=== PATIENT | female | born 1960 | race Caucasian/White ===

== ENCOUNTER 2016-07-15 11:24 | Inpatient (IN) | payer OTHER ==
--- NOTE | ~2016-07-15 | CO ---
Unit #: [id number] #: [id number] Patient: DEBBI GOLDMAN [id number] [facility] [address] [place], [place] [address] [id number] I MR#: [id number] NAME: DEBBI GOLDMAN ROOM: 579 Age: 56 Sex: F Admission Date: 07/15/2016 : 1960 Attending Physician: Sriram Hermosillo M.D. Primary Care Physician: Primary Care Physician No Consultation Date: 07/19/2016 CONSULTATION REPORT DISCUSSION Ms. Jenise Sena "Debbi Goldman" is a 56-year-old female, seen in room 579, bed 1 at [facility] on 07/19/2016. The patient was compliant, cooperative, able to make good eye contact. The patient reports that she is not feeling suicidal and able to contract for safety. The patient was admitted with suicide attempt, compliant, cooperative, has a sitter, sleeping good, tolerating medication fairly well, cooperative on the unit. REVIEW OF SYSTEMS Complete review of systems unremarkable. MENTAL STATUS EXAMINATION General appearance, the patient dressed casually. Attention span and concentration, fair. Speech, regular rate and coherent. Oriented in time, place, and person. Mood and affect, labile. Thought process, coherent and goal directed. Thought content, the patient denied any thoughts of harming self or others or any psychotic symptom. Recent and remote memory, fair. Language, able to name object and repeat phrases. Fund of knowledge, aware of current event and passive vocabulary intact. Mood and affect, sad and dysphoric. Insight and judgment, fair to poor. DIAGNOSIS Major depressive disorder, recurrent, severe, F33.2. ASSESSMENT/PLAN 1. Supportive psychotherapy and psychoeducation provided to the patient. 2. Educated about benefits and side effects of medication and course and prognosis of illness. 3. Advised to continue with current treatment and the patient can be discharged home once the patient is medically stable and follow up in outpatient program at [facility]. Advised to discontinue sitter at this time. Dictated by... Micaela Burleson/juan manuel TD: 07/21/2016 04:27 JOB #: [id number] Unit #: [id number] #: [id number] Patient: DEBBI GOLDMAN CONSULTATION REPORT Page 1 of 1 X Pepe Son MD CONSULTATION REPORT
--- NOTE | ~2016-07-15 | CR72 ---
[facility] A Service of [facility] & [facility] RADIOLOGY TEXT RESULTS PATIENT: SNEHA CHADWICK LOCATION: [facility] 579-01 : 60 UNIT #: [id number] AGE: [address]: Sriram Hermosillo MD SEX: F ORDER DR: [id number] [facility] [address] [place], [place] [address] [id number] I MR#: [id number] Acc #: [id number] NAME: CHELSI SWANSON : 1960 SEX: F STUDY DATE/TIME: 07/16/2016 5:27 UNIT: [facility] ROOM: [facility] STUDY DESCRIPTION: CR Chest Single View Portable Attending Physician: Eliud Noble M.D. Ordering Physician: Eliud Noble M.D. Primary Care Physician: Primary Care Physician No MEDICAL IMAGING REPORT This report is preliminary unless electronic signature is present EXAM Portable chest INDICATIONS Hypotension today. PROCEDURE Frontal view chest. COMPARISON 07/15/2016 FINDINGS Heart size stable. Left basilar atelectasis. No pneumothorax. ET tube not significantly changed. IMPRESSION Slightly increased left basilar atelectasis. Otherwise stable. Dictated by... Wang Page M.D. THIS IS AN ELECTRONICALLY VERIFIED REPORT Wang Page M.D. at 07/20/2016 7:30 AM JAYNE/clement TD: 07/16/2016 07:20 JOB #: [id number] MEDICAL IMAGING REPORT Page 1 of 1 COPY
--- NOTE | ~2016-07-15 | HP ---
Unit #: [id number] #: [id number] Patient: SNEHA CHADWICK [id number] [address] [place], [place] [address] [id number] I MR#: [id number] NAME: CHELSI SWANSON ROOM: 81171 Age: Sex: F Admission Date: 07/15/2016 : 04/12/1959 Attending Physician: Eliud Noble M.D. HISTORY AND PHYSICAL CHIEF COMPLAINT Drug overdose. HISTORY OF PRESENT ILLNESS This is a 57 year old who was reported allegedly overdosed about 5 a.m. this morning on Metoprolol, lisinopril and Hydrochlorothiazide. She was brought to the emergency room via EMS. By the time she arrived in the emergency room, she was already hypotensive. She did receive glucagon bolus. As well, she is currently on a glucagon drip. Poison Control Center was contacted by ER physician, Dr. Harvey. The patient is unable to provide a history at this point, and no family member was available at this time. REVIEW OF SYSTEMS Unobtainable. The patient is currently intubated on the ventilator. She was given activated charcoal, as well, on presentation to the emergency room. PAST MEDICAL HISTORY Significant for hypertension. Other past medical history is unknown. HOME MEDICATIONS Include metoprolol, lisinopril and Hydrochlorothiazide. ALLERGIES No known drug allergies. SOCIAL HISTORY Unobtainable at this time. FAMILY HISTORY Unobtainable at this time. PHYSICAL EXAMINATION GENERAL: The patient is currently on the ventilator, currently on pressors with dopamine. VITAL SIGNS: Blood pressure 105/58, pulse 84, respiratory rate 19, temperature 99.4. CHEST: Reduced breath sounds in lung bases (1) . ABDOMEN: Full, moves with respirations. Soft. EXTREMITIES: No edema. SKIN: Warm and dry with no rashes. LYMPHATIC SYSTEM: No peripheral lymphadenopathy that I could appreciate. Unit #: [id number] #: [id number] Patient: SNEHA CHADWICK DIAGNOSTIC DATA LABORATORY: She had a blood gas early this morning at 7:47 with a pH of 7.37, pCO2 of 47.5, FIO2 100%, bicarb 27.9. Chemistry - Glucose of 273, BUN 8, creatinine 1.1, sodium 139, potassium 4, creatinine 1.1, AST 124, ALT 172, alkaline phosphatase 102. She had a CBC - WBC of 8.4, hemoglobin 13.4, hematocrit 39.6, platelet count 154, neutrophil count 73.9. She had a urinalysis, which showed specific gravity of 1.018, pH of 5.5, leukocyte esterase trace, nitrite positive. ASSESSMENT AND PLAN 1. Drug overdose. She is currently intubated on the ventilator. She is on glucagon for beta-nasir overdose. She is currently on pressor support. 2. Hypertension. She is currently hypotensive at this time. 3. UTI. Will give her IV Rocephin 1 gram x1 now and 1 gram daily, and we will culture her urine. 4. Will consult ore crusher for vent management. 5. DVT prophylaxis - Lovenox, as well as SCDs. 6. GI prophylaxis - Protonix 40 mg IV daily. NOTE: Critical care time spent is about 37 minutes. Dictated by Micaela Avitia/javon TD: 07/15/2016 10:35 JOB #: [id number] HISTORY AND PHYSICAL Page 1 of 1 X Eliud Noble MD HISTORY AND PHYSICAL
--- NOTE | ~2016-07-15 | CR72 ---
[facility] A Service of [facility] & [facility] RADIOLOGY TEXT RESULTS PATIENT: SNEHA CHADWICK LOCATION: [facility] 579-01 : 60 UNIT #: [id number] AGE: [address]: Sriram Hermosillo MD SEX: F ORDER DR: [id number] [facility] [address] [place], [place] [address] [id number] I MR#: [id number] Acc #: [id number] NAME: SNEHA CHADWICK : 1960 SEX: F STUDY DATE/TIME: 07/17/2016 4:34 [facility]IT: [facility] ROOM: [facility] STUDY DESCRIPTION: CR Chest Single View Portable Attending Physician: Eliud Noble M.D. Ordering Physician: Cathy Spencer M.D. Primary Care Physician: Primary Care Physician No MEDICAL IMAGING REPORT This report is preliminary unless electronic signature is present EXAM Portable chest INDICATIONS Respiratory failure. PROCEDURE Frontal view chest. COMPARISON 07/16/2016 FINDINGS Heart size within normal limits. No dense consolidation, pleural fluid or pneumothorax. IMPRESSION No dense consolidation. The ET tube and NG tube have been removed. Dictated by... Wang Page M.D. THIS IS AN ELECTRONICALLY VERIFIED REPORT Wang Page M.D. at 07/20/2016 7:29 AM Joseline TD: 07/17/2016 07:58 JOB #: [id number] MEDICAL IMAGING REPORT Page 1 of 1 COPY
--- NOTE | ~2016-07-15 | CO ---
Unit #: [id number] #: [id number] Patient: SNEHA CHADWICK [id number] [facility]. [place], [place] [address] [id number] I MR#: [id number] NAME: CHELSI SWANSON ROOM: [facility] Age: 56 Sex: F Admission Date: 07/15/2016 : 1960 Attending Physician: Eliud Noble M.D. Consultation Date: 07/15/2016 CONSULTATION REPORT REASON FOR CONSULTATION Critical care management and respiratory failure. CHIEF COMPLAINT Drug overdose. HISTORY OF PRESENT ILLNESS A 57-year-old female with a past medical history of hypertension presented with overdose of metoprolol, lisinopril and hydrochlorothiazide. She was brought to the emergency room and was given activated charcoal. She did receive a glucagon bolus and is currently on a glucagon drip. I am seeing the patient at the bedside. She is currently intubated and sedated. REVIEW OF SYSTEMS Unobtainable as patient is on a ventilator. PAST MEDICAL HISTORY Hypertension. HOME MEDICATIONS 1. Metoprolol. 2. Lisinopril and hydrochlorothiazide. ALLERGIES No known drug allergies. SOCIAL HISTORY Unobtainable. PHYSICAL EXAMINATION VITAL SIGNS: Temperature 98, pulse 87, respirations 12, and blood pressure 110/70. NEUROLOGICAL: Sedated, intubated. CARDIOVASCULAR: S1 plus S2. RESPIRATORY: Bilateral air entry, bilateral mild rhonchi. GASTROINTESTINAL: Nontender and soft. Bowel sounds positive. EXTREMITIES: No edema. SKIN: No rashes and no ulcers. LYMPHATICS: No lymphadenopathy. DIAGNOSTIC STUDIES LABORATORY: Blood gas with pH of 7.4, PCO2 of 42, and PO2 of 88. Creatinine 1.1, sodium 139, and potassium 4. Liver enzymes are reviewed. Unit #: [id number] #: [id number] Patient: SNEHA CHADWICK ADDENDUM JOB [id number] ASSESSMENT 1. Acute respiratory failure. 2. Drug overdose. 3. Urinary tract infection. 4. Possible suicide attempt. PLAN At this point, the plan is to continue ventilator support, IV antibiotics, and bronchodilator. Noncontrast CT of the chest. GI and DVT prophylaxis. Continue IV fluids and monitor renal function. Troponin and 2D echo will be ordered. Patient will be closely monitored. She will be continued on glucagon drip. Please see orders for detailed plans. Thank you very much for this consultation. Dictated by... Micaela Tsang TD: 07/15/2016 22:13 JOB #: [id number] CONSULTATION REPORT Page 1 of 1 X Cathy Spencer MD X CONSULTATION REPORT
--- NOTE | ~2016-07-15 | CO ---
Unit #: [id number] #: [id number] Patient: DEBBI GOLDMAN [id number] [facility] [address] [place], [place] [address] [id number] I MR#: [id number] NAME: DEBBI GOLDMAN ROOM: 579 Age: 56 Sex: F Admission Date: 07/15/2016 : 1960 Attending Physician: Sriram Hermosillo M.D. Primary Care Physician: Primary Care Physician No Consultation Date: 07/20/2016 CONSULTATION REPORT REASON FOR CONSULTATION Followup. DISCUSSION Ms. Debbi Goldman (Jenise Sena) is a 56-year-old female, seen in room 579 at [facility] on 07/20/2016. The patient was compliant and cooperative. Reports of feeling better. Denied any suicidal or homicidal ideation. Denied any psychotic symptom. Sleeping good. Tolerating medication fairly well. REVIEW OF SYSTEMS Complete review of systems unremarkable. MENTAL STATUS EXAMINATION General appearance, the patient lying comfortably in bed. Attention span and concentration, fair. Speech, regular rate and coherent. Oriented in time, place, and person. Mood and affect were labile. Thought process, goal directed. Thought content, the patient denied any thoughts of harming self or others or any psychotic symptom. Recent and remote memory, fair. Language, able to name object and repeat phrases. Fund of knowledge, fair. Insight and judgment, fair to slightly impaired. DIAGNOSIS Major depressive disorder, recurrent, severe, F33.2. ASSESSMENT/PLAN 1. Supportive psychotherapy and psychoeducation provided to the patient. 2. Educated about benefits and side effects of medication and course and prognosis of illness. 3. Advised to continue with current treatment and follow up on the outpatient basis at [facility] telephone #[phone]. Dictated by... Micaela Burleson/juan manuel TD: 07/21/2016 03:23 JOB #: [id number] Unit #: [id number] #: [id number] Patient: DEBBI GOLDMAN CONSULTATION REPORT Page 1 of 1 X Pepe Son MD CONSULTATION REPORT
--- NOTE | ~2016-07-15 | EKG ---
PATIENT: CHELSI SWANSON UNIT #: [id number] Ventricular Rate: 79 BPM Atrial Rate: 79 BPM P-R Interval: 136 ms QRS Duration: 86 ms Q-T Interval: 432 ms QTC Calculation(Bezet): 495 ms P Ozan: 60 degrees Calculated R Ozan: 78 degrees Calculated T Ozan: 66 degrees Diagnosis Line: Normal sinus rhythm Diagnosis Line: Cannot rule out Septal infarct , age undetermined Diagnosis Line: Borderline ECG Diagnosis Line: No previous ECGs available Diagnosis Line: Confirmed by BERNICE CASTRO MD ([id number]) on 07/15/2016 Diagnosis Line: 10:36:20 PM INTERPRETING MD: GLORIA GALO
--- NOTE | ~2016-07-15 | CR72 ---
[facility] A Service of [facility] & [facility] RADIOLOGY TEXT RESULTS PATIENT: SNEHA CHADWICK LOCATION: [facility] 579-01 : 60 UNIT #: [id number] AGE: [address]: Sriram Hermosillo MD SEX: F ORDER DR: [id number] [facility] [address] [place], [place] [address] [id number] P MR#: [id number] Acc #: [id number] NAME: CHELSI SWANSON : 04/12/1959 SEX: F STUDY DATE/TIME: 07/15/2016 6:23 UNIT: JW ROOM: STUDY DESCRIPTION: CR Chest Single View Portable Attending Physician: Jeff Harvey M.D. Ordering Physician: Rocky Lyons M.D. MEDICAL IMAGING REPORT This report is preliminary unless electronic signature is present EXAM Portable chest 07/15 INDICATIONS Endotracheal tube placement. Overdose today. FINDINGS AP portable chest was obtained. No comparison. Cardiac and mediastinal contours are normal. The lungs are clear. There is no pneumothorax. ET tube mid trachea. NG tube tip is in the proximal stomach with the side port in the distal esophagus. Recommend advancing the NG tube. Dictated by... Kumar Sharma Jr., M.D. THIS IS AN ELECTRONICALLY VERIFIED REPORT Kumar Sharma Jr., M.D. at 07/15/2016 3:53 PM JENNA/brooklyn TD: 07/15/2016 07:34 JOB #: [id number] MEDICAL IMAGING REPORT Page 1 of 1 COPY
--- NOTE | ~2016-07-15 | CR6 ---
[facility] A Service of [facility] RADIOLOGY TEXT RESULTS PATIENT: SNEHA CHADWICK LOCATION: [facility] 579-01 : 60 UNIT #: [id number] AGE: [address]: Sriram Hermosillo MD SEX: F ORDER DR: [id number] [facility] [address] [place], [place] [address] [id number] P MR#: [id number] Acc #: [id number] NAME: CHELSI SWANSON : 04/12/1959 SEX: F STUDY DATE/TIME: 07/15/2016 7:20 UNIT: [facility] ROOM: STUDY DESCRIPTION: CR Abdomen Portable Sng View Attending Physician: Jeff Harvey M.D. Ordering Physician: Jeff Harvey M.D. MEDICAL IMAGING REPORT This report is preliminary unless electronic signature is present EXAM Supine radiograph of the abdomen 07/15/2016 HISTORY Nasogastric tube placement. Supine radiograph of the abdomen is presented. COMPARISON 07/15/2016 06:25 hours. FINDINGS Enteric tube extends approximately 46 cm below the level of the diaphragm. It loops in the distal stomach and proceeds in a retrograde fashion such that the tip terminates pointed upward and to the left in the region of the lower gastric fundus. Bowel gas pattern shows air-filled but nondilated transverse colon. Relative paucity of air seen in small bowel. No free air. Solid organ contours unremarkable. Ill-defined patchy densities bilateral lung bases are indeterminate in appearance. Please see today's chest radiograph for further evaluation. No dense airspace disease is seen and there is no pleural effusions seen. Mild degenerative changes in spine. Atherosclerotic arterial calcifications noted. Dictated by... Luis Jama M.D. THIS IS AN ELECTRONICALLY VERIFIED REPORT Luis Jama M.D. at 07/16/2016 5:36 PM GORDON/clement [facility] A Service of [facility] RADIOLOGY TEXT RESULTS PATIENT: SNEHA CHADWICK LOCATION: [facility] 579-01 : 60 UNIT #: [id number] AGE: [address]: Sriram Hermosillo MD SEX: F ORDER DR: TD: 07/15/2016 07:53 JOB #: [id number] MEDICAL IMAGING REPORT Page 1 of 1 COPY
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
--- NOTE | ~2016-07-15 | CR7 ---
[facility] A Service of [facility] RADIOLOGY TEXT RESULTS PATIENT: SNEHA CHADWICK LOCATION: [facility] 579-01 : 60 UNIT #: [id number] AGE: [address]: Sriram Hermosillo MD SEX: F ORDER DR: [id number] [facility] [address] [place], [place] [address] [id number] P MR#: [id number] Acc #: [id number] NAME: CHELSI SWANSON : 04/12/1959 SEX: F STUDY DATE/TIME: 07/15/2016 6:25 UNIT: JW ROOM: STUDY DESCRIPTION: CR Abdomen Single AP View Attending Physician: Jeff Harvey M.D. Ordering Physician: Rocky Lyons M.D. MEDICAL IMAGING REPORT This report is preliminary unless electronic signature is present EXAM KUB 07/15 INDICATIONS NG tube placement today. Overdose today. FINDINGS Supine view of the abdomen was obtained. The tip of an NG tube is present in the proximal stomach with the side port in the distal esophagus. Recommend advancing the NG tube at least 10 cm. Visualized bowel gas pattern is normal. Dictated by... Kumar Sharma Jr., M.D. THIS IS AN ELECTRONICALLY VERIFIED REPORT Kumar Sharma Jr., M.D. at 07/15/2016 3:53 PM JENNA/clement TD: 07/15/2016 07:36 JOB #: [id number] MEDICAL IMAGING REPORT Page 1 of 1 COPY
--- NOTE | ~2016-07-15 | DS ---
Unit #: [id number] #: [id number] Patient: SNEHA CHADWICK [id number] [facility]. [place], [place] [address] [id number] I MR#: [id number] NAME: SNEHA CHADWICK ROOM: 579 Age: 56 Sex: F Admission Date: 07/15/2016 : 1960 Discharge Date: 07/20/2016 Attending Physician: Sriram Hermosillo M.D. Primary Care Physician: No Primary Care Physician DISCHARGE SUMMARY CONSULTANTS 1. Dr. Spencer/Dr. Alma Kc. 2. Dr. Son. ADMITTING DIAGNOSES 1. Drug overdose suicide attempt. 2. Acute respiratory failure. DISCHARGE DIAGNOSES 1. Drug overdose suicide attempt. 2. Acute respiratory failure. 3. Urinary tract infection. HISTORY OF PRESENT ILLNESS The patient is a 56-year-old lady with past medical history of hypertension, who lives at her home, was brought to the emergency room on the mainly because of her drug overdosage in attempt to kill herself. She mentions she took lisinopril, metoprolol, and hydrochlorothiazide as she was not feeling happy with her life. At the time when she presented to the emergency room, she was intubated electively, started on glucagon drip and admitted to the ICU. Dr. Spencer managed the ICU. She was extubated in the hospital course. She was seen by Dr. Son. He suggested to follow with him as an outpatient. Patient currently denies any suicidal thoughts or ideas. She says she has enough social support. She has support from her mandaeism. She requests help with prescriptions and I am requesting manager of case management to see if her prescriptions can be covered. She is doing clinically better and will discharge her home. Will request her to follow with psychiatry as an outpatient. PHYSICAL EXAMINATION On the day of the discharge, her physical examination: VITAL SIGNS: Temperature 98.1, pulse rate 110, respiratory rate 18, blood pressure 170/79. GENERAL: The patient is alert and oriented x3, lying in the bed in no acute distress. HEENT: Normocephalic and atraumatic. No icterus. PERRLA. Extraocular muscles intact. NECK: Supple. No JVD. HEART: S1, S2. Regular rate and rhythm. CHEST: Bilateral equal air entry. Clear to auscultation. ABDOMEN: Obese, soft, nontender. EXTREMITIES: No edema. Normal pulses. DISCHARGE MEDICATIONS Unit #: [id number] #: [id number] Patient: SNEHA CHADWICK 1. Lisinopril/hydrochlorothiazide 10/12.5 mg one tablet p.o. daily. 2. Ventolin two puffs q.i.d. p.r.n. for shortness of breath. 3. Symbicort 160/4.5 mcg two puffs twice a day. 4. Tylenol p.r.n. 5. Neurontin 600 mg twice a day. 6. Effexor 75 mg twice a day. 7. Metoprolol 25 mg daily. 8. Lipitor 20 mg daily. 9. Omnicef 300 mg p.o. b.i.d. for three more days. DISCHARGE INSTRUCTIONS She will be discharged home and instructed to follow with her primary care as an outpatient. Will try to arrange for an appointment with outpatient clinic with the hospitalist team. Dictated by... Micaela Queen/wanda TD: 07/20/2016 16:03 JOB #: [id number] DISCHARGE SUMMARY Page 1 of 1 X X DISCHARGE SUMMARY
[2016-07-15 07:21] LABS: URINE SOURCE CLEAN CATCH
[2016-07-15 07:24] LABS: BASOPHIL# 0.1 X10e3 (0-0.3); BASOPHIL% 1.1 % (0-2.5); EOSINOPHIL# 0.1 X10e3 (0-0.7); EOSINOPHIL% 1.7 % (0.0-7.0); HEMATOCRIT 39.6 % (35.0-45.0); HEMOGLOBIN 13.4 gm/dL (12.0-16.0); LYMPHOCYTE# 1.4 X10e3 (1.0-3.5); LYMPHOCYTE% 16.6 % (17.0-45.0); MEAN CELL VOLUME 97.2 FL (83-96); MEAN CORPUSCULAR HEMOGLOBIN 32.9 PG (28-34); MEAN CORPUSCULAR HGB CONC 33.8 g/dL (30-36); MEAN PLATELET VOLUME 8.9 FL (6.5-11.5); MONOCYTE# 0.6 X10e3 (0-1.0); MONOCYTE% 6.7 % (3.0-12.0); NEUTROPHIL# 6.2 X10e3 (1.5-7.1); NEUTROPHIL% 73.9 % (40-75); PLATELET COUNT 134 X10e3 (140-420); RED BLOOD COUNT 4.07 X10e (3.90-5.30); RED CELL DISTRIBUTION WIDTH 13.4 % (11.0-15.5); WHITE BLOOD COUNT 8.4 X10e3 (4.0-10.5)
[2016-07-15 07:30] LABS: DIFF IND NO
[2016-07-15 07:35] LABS: URINE APPEARANCE CLEAR; URINE BILIRUBIN NEG (NEG); URINE BLOOD NEG (NEG); URINE COLOR YELLOW; URINE GLUCOSE NEG (NEG); URINE KETONE NEG (NEG); URINE LEUKOCYTE ESTERASE TRACE (NEG); URINE NITRATE POS (NEG); URINE PH 5.5 (5-8); URINE PROTEIN NEG (NEG); URINE SPECIFIC GRAVITY 1.018 (1.003-1.035)
[2016-07-15 07:38] LABS: CULTURE INDICATED? YES; URBCS1 AUWI 0-2 /[HPF] (0-2); URINE SQUAMOUS EPITHELIAL CELL FEW /[HPF]
[2016-07-15 07:54] LABS: PARTIAL THROMBOPLASTIN TIME 22.8 SECONDS (23.5-31.3)
[2016-07-15 07:55] LABS: URINE BACTERIA AUWI 2+ (NEGATIVE)
[2016-07-15 07:55] LABS: ARTERIAL BLD GAS O2 SATURATION 98.2 % (90.0-100.0); ARTERIAL BLOOD GAS HCO3 27.9 mmol/L; ARTERIAL BLOOD GAS MET HB 0.8 %sat (0.0-2.0); ARTERIAL BLOOD GAS PCO2 47.5 mmHg (35.0-45.0); ARTERIAL BLOOD GAS pH 7.377 (7.350-7.450)
[2016-07-15 07:56] LABS: ARTERIAL BLOOD GAS ART SITE RIGHT BRACHIAL; ARTERIAL BLOOD GAS DELIVERY VENT; ARTERIAL BLOOD GAS VENT MODE AC; ARTERIAL DRAW? YES
[2016-07-15 07:58] LABS: ACETAMINOPHEN <10 ug/mL; ALBUMIN SERUM 3.3 g/dL (3.5-5.0); ALCOHOL BLOOD <5 mg/dL (0); ALKALINE PHOSPHATASE 102 U/L (32-92); ALT (SGPT) 172 U/L (10-40); AST (SGOT) 124 U/L (10-42); BILIRUBIN, DIRECT 0.2 mg/dL (0.0-0.2); BILIRUBIN,INDIRECT 0.5 mg/dL (0.0-0.9); BILIRUBIN,TOTAL 0.7 mg/dL (0.2-2.0); BLOOD UREA NITROGEN 18 mg/dL (9-23); BUN/CREATININE RATIO 16.36; CALCIUM SERUM 8.6 mg/dL (8.4-10.2); CARBON DIOXIDE 29 mmol/L (22-31); CHLORIDE 103 mmol/L (100-111); CREATININE SERUM 1.1 mg/dL (0.6-1.4); GLOM FILT RATE Estimated 55.7 mL/min (>60); GLUCOSE FASTING 273 mg/dL (70-110); SALICYLATE <4.0 mg/dL; SODIUM 139 mmol/L (135-145)
[2016-07-15 08:14] LABS: AMPHETAMINE NEG (NEG); BARBITURATES NEG (NEG); BENZODIAZEPINES NEG (NEG); COCAINE NEG (NEG); MARIJUANA NEG (NEG); OPIATES NEG (NEG); TRICYCLIC ANTIDEPRESSANTS NEG (NEG); U METHADONE NEG (NEG)
[~2016-07-15 11:24] MED LIST: ADALAT CC PO; ADALATCC; ADVAIR 250-501 EAC1 IN; ADVAIR 5001 DISK W/D PO; ADVAIR INH; ALAVERT10 M1 PO; ALBUTEROL 0.5ML INH; ALBUTEROL17 GM; ALBUTEROL17 GM INH; ANTI-ITCH28 GM TOP; ASPIRIN PO; AUGMENTIN PO; BACTRIM DS TABL1 TA1 PO; BP PILL; COMBIVENT INH14.7 GM; COMBIVENT MININEB; COMBIVENT MININEB INH; COMBIVENT14.7 GM IN; DARVOCET-N 1001 TAB; DARVOCET-N 1001 TAB PO; FLEXERIL PO; FLOXIN OTIC5 M1 AD; IBUPROFEN; KEFLEX500 M1 PO; KLONOPIN; LEVAQUIN PO; LISINOPRIL; LISINOPRIL PO; LISINOPRIL-HCTZ1 T19 PO; LORTAB 10/500 T1 TAB PO; LORTAB 5/500 TA1 TA2 PO; MEDROL PO; METHADONE PO; NICOTINE T1 PATCH .2 TOP; PHENERGAN PO; PREDNISONE PO; PRILOSEC; PRILOSEC PO; PRILOSEC20 M1 PO; PROMETHAZINE D118 ML PO; PROZAC; PROZAC PO; PYRIDIUM PO; SEROQUEL PO; ZITHROMAX PO; ZOFRAN PO; [UNRECOGNIZED DRUG - OTHER]
[2016-07-15 11:57] LABS: SALICYLATE <4.0 mg/dL
[2016-07-15 12:00] LABS: ACETAMINOPHEN <10 ug/mL
[2016-07-15 14:24] LABS: ARTERIAL BLD GAS O2 SATURATION 95.7 % (90.0-100.0); ARTERIAL BLOOD GAS ART SITE LEFT RADIAL; ARTERIAL BLOOD GAS CARBOXY HB 0.6 %sat (0.0-9.0); ARTERIAL BLOOD GAS DELIVERY VENT; ARTERIAL BLOOD GAS HCO3 28.8 mmol/L; ARTERIAL BLOOD GAS MET HB 0.7 %sat (0.0-2.0); ARTERIAL BLOOD GAS PCO2 42.3 mmHg (35.0-45.0); ARTERIAL BLOOD GAS PO2 88.8 mmHg (80.0-100); ARTERIAL BLOOD GAS VENT MODE AC; ARTERIAL BLOOD GAS pH 7.441 (7.350-7.450); ARTERIAL DRAW? YES
[2016-07-15] MEDS ORDERED: METOPROLOL TART25 MG PO (17:49)
[2016-07-15] MEDS ORDERED: IBUPROFEN800 MG PO (17:50)
[2016-07-15] MEDS ORDERED: ALBUTEROL17 GM INH (17:50)
[2016-07-15] MEDS ORDERED: EFFEXOR75 M3 PO (17:55)
[2016-07-15] MEDS ORDERED: ZESTORETIC 10-1 EAC1 PO (17:55)
[2016-07-15] MEDS ORDERED: LIPITOR20 MG PO (17:55)
[2016-07-15] MEDS ORDERED: NEURONTIN600 MG PO (17:56)
[2016-07-15] MEDS ORDERED: SYMBICORT INH (17:57)
[2016-07-16 04:45] LABS: ARTERIAL BLD GAS O2 SATURATION 97.8 % (90.0-100.0); ARTERIAL BLOOD GAS CARBOXY HB 0.9 %sat (0.0-9.0); ARTERIAL BLOOD GAS HCO3 28.6 mmol/L; ARTERIAL BLOOD GAS MET HB 0.9 %sat (0.0-2.0); ARTERIAL BLOOD GAS pH 7.392 (7.350-7.450)
[2016-07-16 04:57] LABS: ARTERIAL BLOOD GAS ALLEN TEST NORMAL; ARTERIAL BLOOD GAS ART SITE LEFT RADIAL; ARTERIAL BLOOD GAS DELIVERY VENT; ARTERIAL BLOOD GAS VENT MODE AC; ARTERIAL DRAW? YES
[2016-07-16 05:19] LABS: BASOPHIL# 0.1 X10e3 (0-0.3); BASOPHIL% 0.8 % (0-2.5); EOSINOPHIL# 0.2 X10e3 (0-0.7); EOSINOPHIL% 1.5 % (0.0-7.0); HEMATOCRIT 44.6 % (35.0-45.0); HEMOGLOBIN 14.8 gm/dL (12.0-16.0); LYMPHOCYTE# 3.3 X10e3 (1.0-3.5); MEAN CELL VOLUME 96.1 FL (83-96); MEAN CORPUSCULAR HEMOGLOBIN 31.8 PG (28-34); MEAN CORPUSCULAR HGB CONC 33.1 g/dL (30-36); MEAN PLATELET VOLUME 8.9 FL (6.5-11.5); MONOCYTE# 1.3 X10e3 (0-1.0); MONOCYTE% 8.4 % (3.0-12.0); NEUTROPHIL# 10.7 X10e3 (1.5-7.1); NEUTROPHIL% 68.3 % (40-75); PLATELET COUNT 131 X10e3 (140-420); RED BLOOD COUNT 4.64 X10e (3.90-5.30); RED CELL DISTRIBUTION WIDTH 13.6 % (11.0-15.5)
[2016-07-16 05:22] LABS: WHITE BLOOD COUNT 15.7 X10e3 (4.0-10.5)
[2016-07-16 05:23] LABS: DIFF IND YES
[2016-07-16 06:02] LABS: ALBUMIN SERUM 3.2 g/dL (3.5-5.0); BILIRUBIN,TOTAL 1.2 mg/dL (0.2-2.0); BUN/CREATININE RATIO 22.85; CREATININE SERUM 0.7 mg/dL (0.6-1.4); GLOM FILT RATE Estimated 96.9 mL/min (>60); PROTEIN TOTAL SERUM 6.4 g/dL (6.0-8.3)
[2016-07-16 06:18] LABS: POTASSIUM 2.8 mmol/L (3.5-5.1)
[2016-07-16 06:27] LABS: PLATELET ESTIMATE DECREASED (NORMAL); RBC NORMAL YES
[2016-07-16 06:28] LABS: ANISOCYTOSIS SL
[2016-07-16 10:02] LABS: ARTERIAL BLD GAS O2 SATURATION 95.6 % (90.0-100.0); ARTERIAL BLOOD GAS ALLEN TEST NORMAL; ARTERIAL BLOOD GAS ART SITE LEFT BRACHIAL; ARTERIAL BLOOD GAS DELIVERY VENT; ARTERIAL BLOOD GAS HCO3 29.5 mmol/L; ARTERIAL BLOOD GAS PCO2 50.7 mmHg (35.0-45.0); ARTERIAL BLOOD GAS PO2 86.4 mmHg (80.0-100); ARTERIAL BLOOD GAS VENT MODE CPAP; ARTERIAL BLOOD GAS pH 7.374 (7.350-7.450); ARTERIAL DRAW? YES
[2016-07-17 04:38] LABS: BASOPHIL% 0.8 % (0-2.5); EOSINOPHIL# 0.1 X10e3 (0-0.7); EOSINOPHIL% 1.6 % (0.0-7.0); HEMATOCRIT 38.5 % (35.0-45.0); LYMPHOCYTE# 1.2 X10e3 (1.0-3.5); LYMPHOCYTE% 21.5 % (17.0-45.0); MEAN CELL VOLUME 95.6 FL (83-96); MEAN CORPUSCULAR HEMOGLOBIN 31.9 PG (28-34); MEAN CORPUSCULAR HGB CONC 33.4 g/dL (30-36); MEAN PLATELET VOLUME 8.5 FL (6.5-11.5); MONOCYTE# 0.5 X10e3 (0-1.0); MONOCYTE% 8.6 % (3.0-12.0); NEUTROPHIL# 3.8 X10e3 (1.5-7.1); NEUTROPHIL% 67.5 % (40-75); RED BLOOD COUNT 4.02 X10e (3.90-5.30); RED CELL DISTRIBUTION WIDTH 13.4 % (11.0-15.5)
[2016-07-17 04:51] LABS: HEMOGLOBIN 12.8 gm/dL (12.0-16.0); WHITE BLOOD COUNT 5.6 X10e3 (4.0-10.5)
[2016-07-17 04:52] LABS: DIFF IND YES; PLATELET COUNT 82 X10e3 (140-420)
[2016-07-17 04:57] LABS: BILIRUBIN,TOTAL 0.8 mg/dL (0.2-2.0); CALCIUM SERUM 8.3 mg/dL (8.4-10.2); CREATININE SERUM 0.6 mg/dL (0.6-1.4); GLOM FILT RATE Estimated 101.9 mL/min (>60); MAGNESIUM 1.3 mg/dL (1.6-3.0)
[2016-07-17 04:58] LABS: ANISOCYTOSIS SL; PLATELET ESTIMATE DECREASED (NORMAL)
[2016-07-17 05:09] LABS: ARTERIAL BLD GAS O2 SATURATION 95.9 % (90.0-100.0); ARTERIAL BLOOD GAS CARBOXY HB 1.3 %sat (0.0-9.0); ARTERIAL BLOOD GAS HCO3 30.1 mmol/L; ARTERIAL BLOOD GAS pH 7.398 (7.350-7.450)
[2016-07-17 05:31] LABS: ARTERIAL BLOOD GAS ALLEN TEST NORMAL; ARTERIAL BLOOD GAS ART SITE LEFT RADIAL; ARTERIAL BLOOD GAS DELIVERY NASAL CANNULA; ARTERIAL DRAW? YES
[2016-07-18 04:28] LABS: MAGNESIUM 1.5 mg/dL (1.6-3.0); POTASSIUM 3.6 mmol/L (3.5-5.1)
[2016-07-19 05:46] LABS: EOSINOPHIL% 2.1 % (0.0-7.0); LYMPHOCYTE# 0.6 X10e3 (1.0-3.5); MEAN CELL VOLUME 96.7 FL (83-96); MEAN CORPUSCULAR HEMOGLOBIN 32.2 PG (28-34); MEAN CORPUSCULAR HGB CONC 33.3 g/dL (30-36); MEAN PLATELET VOLUME 7.9 FL (6.5-11.5); MONOCYTE# 0.2 X10e3 (0-1.0); MONOCYTE% 9.3 % (3.0-12.0); NEUTROPHIL# 1.2 X10e3 (1.5-7.1); NEUTROPHIL% 57.6 % (40-75); PLATELET COUNT 72 X10e3 (140-420); RED BLOOD COUNT 3.72 X10e (3.90-5.30); RED CELL DISTRIBUTION WIDTH 13.6 % (11.0-15.5); WHITE BLOOD COUNT 2.1 X10e3 (4.0-10.5)
[2016-07-19 05:47] LABS: DIFF IND NO
[2016-07-19 07:46] LABS: CALCIUM SERUM 8.6 mg/dL (8.4-10.2); CREATININE SERUM 0.6 mg/dL (0.6-1.4); GLOM FILT RATE Estimated 101.9 mL/min (>60); MAGNESIUM 1.3 mg/dL (1.6-3.0); POTASSIUM 3.1 mmol/L (3.5-5.1)
[2016-07-20 07:38] LABS: BASOPHIL% 1.1 % (0-2.5); EOSINOPHIL# 0.1 X10e3 (0-0.7); EOSINOPHIL% 1.8 % (0.0-7.0); HEMATOCRIT 38.6 % (35.0-45.0); HEMOGLOBIN 12.7 gm/dL (12.0-16.0); LYMPHOCYTE# 0.6 X10e3 (1.0-3.5); LYMPHOCYTE% 20.3 % (17.0-45.0); MEAN CELL VOLUME 97.8 FL (83-96); MEAN CORPUSCULAR HEMOGLOBIN 32.2 PG (28-34); MEAN CORPUSCULAR HGB CONC 32.9 g/dL (30-36); MEAN PLATELET VOLUME 7.6 FL (6.5-11.5); MONOCYTE# 0.3 X10e3 (0-1.0); MONOCYTE% 9.5 % (3.0-12.0); NEUTROPHIL# 2.1 X10e3 (1.5-7.1); NEUTROPHIL% 67.3 % (40-75); PLATELET COUNT 82 X10e3 (140-420); RED BLOOD COUNT 3.95 X10e (3.90-5.30); RED CELL DISTRIBUTION WIDTH 13.6 % (11.0-15.5); WHITE BLOOD COUNT 3.1 X10e3 (4.0-10.5)
[2016-07-20 07:44] LABS: DIFF IND NO
[2016-07-20 08:24] LABS: BUN/CREATININE RATIO 14.28; CALCIUM SERUM 8.7 mg/dL (8.4-10.2); CREATININE SERUM 0.7 mg/dL (0.6-1.4); GLOM FILT RATE Estimated 96.9 mL/min (>60); MAGNESIUM 1.5 mg/dL (1.6-3.0); POTASSIUM 3.3 mmol/L (3.5-5.1)
[2016-07-20] MEDS ORDERED: OMNICEF300 MG PO (15:48)
[2016-07-20] MEDS ORDERED: SYMBICORT INH (15:50)
[2016-07-20] MEDS ORDERED: EFFEXOR75 M1 PO (15:52)
[2016-07-20] MEDS ORDERED: ALBUTEROL0.63 MG/3 INH (15:52)
[2016-07-20] MEDS ORDERED: NEURONTIN600 MG PO (15:52)
== END 2016-07-20 20:02 | disposition home or self-care (01) | DRG 917 ==
LOC: CED 11:24 → CEDOF 11:28 → CICCU2 15:25 → C5C 07-18 20:15
PROVIDERS: Emergency Medicine; Family Medicine; Internal Medicine
PROC: 0BH17EZ Insertion of Endotracheal Airway into Trachea, Via Natural or Artificial Opening (ICD-10-PCS; principal; 2016-07-15)
PROC: 5A1945Z Respiratory Ventilation, 24-96 Consecutive Hours (ICD-10-PCS; 2016-07-15)
PROC: 0D9670Z Drainage of Stomach with Drainage Device, Via Natural or Artificial Opening (ICD-10-PCS; 2016-07-15)
PROC: 05H333Z Insertion of Infusion Device into Right Innominate Vein, Percutaneous Approach (ICD-10-PCS; 2016-07-15)
DX: T44.7X2A Poisoning by beta-adrenoreceptor antagonists, intentional self-harm, initial encounter (principal); J69.0 Pneumonitis due to inhalation of food and vomit; J96.01 Acute respiratory failure with hypoxia; N39.0 Urinary tract infection, site not specified; F33.2 Major depressive disorder, recurrent severe without psychotic features; T46.4X2A Poisoning by angiotensin-converting-enzyme inhibitors, intentional self-harm, initial encounter; T50.2X2A Poisoning by carbonic-anhydrase inhibitors, benzothiadiazides and other diuretics, intentional self-harm, initial encounter; I10 Essential (primary) hypertension; H92.01 Otalgia, right ear; R07.81 Pleurodynia; D64.9 Anemia, unspecified; E83.42 Hypomagnesemia; R19.7 Diarrhea, unspecified
CPT/HCPCS: 36600; 51702; 71010; 74000; 80048; 80053; 80076; 80307; 81003; 82803; 82947; 83735; 84132; 85025; 85610; 85730; 87086; 87088; 87186; 87493; 93005; 94002; 94003; 94640; 94760; 94761; 96374; 96375; 96376; 99291; C9113; G0480; J0330; J0360; J0696; J1265; J1610; J1650; J1885; J2405; J2543; J3475

== ENCOUNTER 2016-08-07 12:56 | Observation (INO) | payer OTHER ==
--- NOTE | ~2016-08-07 | EKG ---
PATIENT: CHELSI SWANSON UNIT #: [id number] Ventricular Rate: 99 BPM Atrial Rate: 99 BPM P-R Interval: 128 ms QRS Duration: 84 ms Q-T Interval: 402 ms QTC Calculation(Bezet): 515 ms P [place]: 69 degrees Calculated R [place]: 58 degrees Calculated T [place]: 65 degrees Diagnosis Line: Sinus rhythm with Premature atrial complexes Diagnosis Line: Right atrial enlargement Diagnosis Line: Prolonged QT Diagnosis Line: Abnormal ECG Diagnosis Line: When compared with ECG of 11-DEC-2013 15:58, Diagnosis Line: Premature atrial complexes are now Present Diagnosis Line: Nonspecific T wave abnormality no longer evident Diagnosis Line: in Lateral leads Diagnosis Line: QT has lengthened Diagnosis Line: Confirmed by LAURA AGUILA MD ([id number]) on Diagnosis Line: 08/07/2016 11:24:12 PM INTERPRETING MD: CHRISTINE
--- NOTE | ~2016-08-07 | HP ---
Unit #: [id number] #: [id number] Patient: CHELSI SWANSON [id number] [facility]. [place], [place] [address] [id number] E MR#: [id number] NAME: CHELSI SWANSON ROOM: Age: 56 Sex: F Admission Date: 08/07/2016 : 1960 Attending Physician: Nelson Barboza D.O. Referring Physician: Primary Care Physician No Primary Care Physician: Primary Care Physician No HISTORY AND PHYSICAL CHIEF COMPLAINT Shortness of breath. HISTORY OF PRESENT ILLNESS The patient is a 56-year-old female with a past medical history of COPD with continued tobacco abuse, hypertension, hyperlipidemia, anxiety, depression, hepatitis C, who presented to the emergency department for evaluation of the above. Of note, the patient was hospitalized at [facility] 07/15 through 07/20/2016 for multiple substance overdose requiring intubation. The patient states that since discharge she has had persistent shortness of breath. She reports a dry cough. She states that she has had chest wall pain in association with cough. She also reports nausea and one bout of emesis within the past 24 hours. She has had an occasional loose stool. In the emergency department, initial oxygen saturation was 98% on 4 liters. Chest x-ray showed nothing acute. Soft tissue neck x-ray showed nothing acute. CT of the chest PE protocol showed no PE. She is being admitted to [facility] for evaluation and further treatment. She was given 125 mg Solu-Medrol in the emergency department. Also, of note, potassium was low and she received 40 mEq of potassium p.o. PAST MEDICAL HISTORY 1. Admission to [facility] 07/15 through 07/20/2016 for multiple substance overdose. Per the discharge summary, the patient overdosed on lisinopril, metoprolol, and hydrochlorothiazide. She was discharged home with outpatient Psychiatry followup. 2. Hypertension. 3. Hyperlipidemia. 4. COPD not on home oxygen. The patient has seen Dr. Spencer in the past. 5. Hepatitis C. 6. Anxiety depression. PAST SURGICAL HISTORY None. SOCIAL HISTORY She lives with her fiance. She smokes a pack of cigarettes daily. She denies alcohol or illicit drug use. She is currently unemployed. Her code status is a FULL CODE. Unit #: [id number] #: [id number] Patient: CHELSI SWANSON FAMILY HISTORY The patient is not sure of her family history. REVIEW OF SYSTEMS A complete review of systems is negative except as indicated in the HPI. PHYSICAL EXAMINATION VITAL SIGNS: Temperature 98.6, pulse 102, respirations 22, blood pressure 171/101, most recently 154/89, oxygen saturation 98% on 4 liters, apparently 93% on room air per ER documentation. GENERAL: The patient is a female who is awake and alert in no acute distress. HEENT: Head is atraumatic. Mucous membranes are moist. NECK: Supple. Trachea is midline. LUNGS: Decreased breath sounds bilaterally. She does have a somewhat raspy voice. Breathing is not labored with conversation. HEART: Regular rate and rhythm. ABDOMEN: Soft, nontender. Bowel sounds present in all four quadrants. EXTREMITIES: Nontender with no pedal edema. NEUROLOGIC: Patient is awake and alert. She follows commands. PSYCHIATRIC: Mood and affect are normal. Patient is cooperative. SKIN OF EXAMINED AREAS: Warm and dry. DIAGNOSTIC STUDIES LABORATORY: Troponin is less than 0.05. Arterial blood gas shows pH 7.448, pCO2 of 47.7, pO2 of 94.1 on 2 liters. INR 1. Lactic acid 0.8. Complete blood count notable for platelets of 99, white blood cell count 3.3. Comprehensive metabolic panel notable for potassium 2.9, glucose 125, AST 432, ALT 587, alkaline phosphatase 156. BNP 85. Tylenol and salicylate levels are negative. Alcohol level is 5. D-dimer is 1034. Rapid flu screen is negative. Urine toxicology screen is positive for amphetamine and marijuana. Magnesium is 1.6. IMAGING: Chest x-ray shows nothing acute. CT of the chest PE protocol shows no PE. Nothing acute. There are background emphysematous changes. Soft tissue neck x-ray is normal. CARDIOVASCULAR: EKG shows sinus rhythm with premature atrial complexes in a rate of 99 beats per minute. ASSESSMENT The patient is a 56-year-old female with: 1. Chronic obstructive pulmonary disease exacerbation with continued tobacco abuse. The patient received Solu-Medrol in the emergency department. 2. Hypokalemia. The patient is on hydrochlorothiazide which could be contributing. She received 40 mEq of potassium in the emergency department. 3. Hypertension. 4. Hyperlipidemia. 5. Anxiety and depression with recent suicide attempt. 6. Hepatitis C with associated transaminitis and cirrhotic morphology noted on CT. 7. Thrombocytopenia, likely related to hepatitis C. The patient's platelet count has been as low as 69 on 02/03/2011, it is 99 today. Unit #: [id number] #: [id number] Patient: CHELSI SWANSON PLAN 1. Admit for observation to intermediate level. 2. Healthy-heart diet if passes bedside swallow. 3. Supplemental oxygen. 4. DuoNeb q.4 h. while awake and q.2 h. p.r.n. 5. Solu-Medrol 80 mg IV q.12 h. 6. Doxycycline 100 mg p.o. b.i.d. for acute bronchitis. 7. Mucinex 600 mg p.o. b.i.d. 8. Consult Dr. Spencer regarding COPD exacerbation. 9. Check magnesium level. 10. Potassium magnesium protocol. 11. SCDs for DVT prophylaxis. 12. Protonix for GI prophylaxis since the patient will be on Solu-Medrol. 13. Repeat labs in the morning. 14. Additional workup and consultants based on above. Dictated by Micaela Weaver/markell TD: 08/07/2016 17:48 JOB #: [id number] HISTORY AND PHYSICAL Page 1 of 1 X Yuliet Head MD X HISTORY AND PHYSICAL
--- NOTE | ~2016-08-07 | CR195 ---
[facility] A Service of [facility] RADIOLOGY TEXT RESULTS PATIENT: CHELSI SWANSON LOCATION: JW : 60 UNIT #: [id number] AGE: [address]: Nelson Barboza DO SEX: F ORDER DR: [id number] [facility] [address] [facility]. [place], [place] [address] [id number] E MR#: [id number] #: [id number] NAME: CHELSI SWANSON : 1960 SEX: F STUDY DATE/TIME: 08/07/2016 11:12 UNIT: JW ROOM: STUDY DESCRIPTION: CR Neck Soft Tissue Attending Physician: Nelsno Barboza D.O. Referring Physician: Primary Care Physician No Ordering Physician: Nelson Barboza D.O. Primary Care Physician: Primary Care Physician No MEDICAL IMAGING REPORT This report is preliminary unless electronic signature is present EXAM Neck soft tissues 08/07/2016 1112 hours HISTORY 56-year-old woman with history of lung cancer complaining of severe cough, sore throat for 3 days, congestion. COMPARISON CT cervical spine 12/11/2013. FINDINGS AP and lateral views of the neck with soft tissue technique demonstrate normal appearance to the airway. The glottis is normal. There is no evidence of epiglottitis. There are bilateral soft tissue calcifications in the region of the carotid bifurcations which could indicate significant underlying atherosclerotic change. Cervical spine is normally aligned. IMPRESSION 1. Normal appearance to the airway without evidence of epiglottitis or mass. 2. Normal alignment of the cervical spine. 3. Atherosclerotic calcifications are present bilaterally in the region of the carotid bifurcations which could indicate significant atherosclerotic disease. Dictated by... Jaclyn Herr M.D. THIS IS AN ELECTRONICALLY VERIFIED REPORT Jaclyn Herr M.D. at 08/07/2016 2:30 PM REGINALD/gardenia [facility] A Service of [facility] RADIOLOGY TEXT RESULTS PATIENT: CHELSI SWANSON LOCATION: JW : 60 UNIT #: [id number] AGE: [address]: Nelson Barboza DO SEX: F ORDER DR: TD: 08/07/2016 13:10 JOB #: [id number] MEDICAL IMAGING REPORT Page 1 of 1 COPY
--- NOTE | ~2016-08-07 | DS ---
Unit #: [id number] #: [id number] Patient: CHELSI SWANSON [id number] [place], [place] [address] [id number] I MR#: [id number] NAME: CHELSI SWANSON ROOM: 327 Age: 56 Sex: F Admission Date: 08/07/2016 : 1960 Discharge Date: 08/09/2016 Attending Physician: Yuliet Head M.D. Primary Care Physician: No Primary Care Physician DISCHARGE SUMMARY FINAL DIAGNOSES 1. Chronic obstructive pulmonary disease. 2. Hypokalemia. SECONDARY DIAGNOSES 1. Hypertension. 2. Hyperlipidemia. 3. Anxiety and depression. 4. History of hepatitis C. CONSULT Dr. Spencer, Pulmonary. HOSPITAL COURSE A 56-year-old female with history of COPD, who basically presents with some difficulty breathing. She was seen and evaluated in emergency room and admitted and placed on steroids, bronchodilators, and antibiotics. She has improved significantly and she was evaluated and found suitable and stable for discharge to home. She is not on any oxygen supplementation at this time. The plan is to discharge her home for outpatient followup with her PCP in next three to five days and pulmonary in about one to two weeks. PHYSICAL EXAMINATION Physical exam prior to discharge: VITAL SIGNS: On examination, blood pressure was 141/79, pulse 115, temperature 97.2. CHEST: Reduced breath sounds in lung bases posteriorly. CARDIOVASCULAR: First and second heart sounds. ABDOMEN: Full, moves with respiration. Soft, nontender. LYMPHATIC SYSTEM: No enlarged peripheral lymphadenopathy that I could appreciate. SKIN: Warm and dry with no rashes. DISCHARGE MEDICATIONS 1. Symbicort 160/4.5 two puffs inhalation b.i.d. 2. Zestoretic 10/12.5 one tablet p.o. daily. 3. Neurontin 600 mg p.o. b.i.d. 4. Effexor 75 mg p.o. b.i.d. 5. Tessalon Perles one to two tablets p.o. t.i.d. 6. Metoprolol tartrate 25 mg p.o. daily. 7. Lipitor 20 mg p.o. daily. 8. Doxycycline 100 mg p.o. b.i.d. for seven days. 9. Prednisone 40 mg p.o. daily for five days. Unit #: [id number] #: [id number] Patient: CHELSI SWANSON 10. Albuterol solution for nebs one neb q.4 hourly p.r.n. 11. Albuterol nebulizer machine and supplies x1. FOLLOWUP She will be discharged with outpatient followup. Time spent coordinating discharge is about 32 minutes. Dictated by... Micaela Avitia TD: 08/10/2016 10:57 JOB #: [id number] DISCHARGE SUMMARY Page 1 of 1 X Eliud Noble MD X DISCHARGE SUMMARY
--- NOTE | ~2016-08-07 | CT16 ---
[facility] A Service of [facility] RADIOLOGY TEXT RESULTS PATIENT: CHELSI SWANSON LOCATION: [facility] 327-01 : 60 UNIT #: [id number] AGE: [address]: Yuliet Head MD SEX: F ORDER DR: [id number] [facility]. [place], [place] [address] [id number] E MR#: [id number] Acc #: [id number] NAME: CHELSI SWANSON : 1960 SEX: F STUDY DATE/TIME: 08/07/2016 14:42 UNIT: [facility] ROOM: STUDY DESCRIPTION: CT Angio Chest for PE Attending Physician: Nelson Barboza D.O. Referring Physician: No Primary Care Physician Ordering Physician: Nelson Barboza D.O. Primary Care Physician: No Primary Care Physician MEDICAL IMAGING REPORT This report is preliminary unless electronic signature is present EXAM CT of the chest with contrast, pulmonary embolism protocol. INDICATIONS 56-year-old female with shortness of breath and chest pain for [address] scan of the chest was performed with contrast using the pulmonary embolism protocol. Coronal and sagittal reformatted images were obtained. This CT exam was performed with one or more of the following radiation dose reduction techniques: automatic exposure control, adjustment of mA and/or kV according to patient size, and iterative reconstruction. COMPARISON 12/11/2013 FINDINGS There is no evidence of pulmonary embolism. Emphysema. There is mild scarring/atelectasis in the bases of the lungs. No airspace consolidation. No lymphadenopathy or pleural effusion. Limited imaging of the upper abdomen demonstrates a cirrhotic morphology of the liver. Stable presumed hepatic cysts. Splenomegaly. Bone windows demonstrate a healing fracture of the posterior left 11th rib. IMPRESSION No acute findings. No evidence for pulmonary embolism. Emphysema. Cirrhotic morphology of the liver. Dictated by... Shailesh Mancilla M.D. THIS IS AN ELECTRONICALLY VERIFIED REPORT [facility] A Service [facility] RADIOLOGY TEXT RESULTS PATIENT: CHELSI SWANSON LOCATION: [facility] 327-01 : 60 UNIT #: [id number] AGE: [address]: Yuliet Head MD SEX: F ORDER DR: Shailesh Mancilla M.D. at 08/10/2016 12:30 PM NAVDEEP/doug TD: 08/07/2016 17:20 JOB #: [id number] MEDICAL IMAGING REPORT Page 1 of 1 COPY
--- NOTE | ~2016-08-07 | CR72 ---
[facility] A Service of [facility] RADIOLOGY TEXT RESULTS PATIENT: CHELSI SWANSON LOCATION: JW : 60 UNIT #: [id number] AGE: [address]: Nelson Barboza DO SEX: F ORDER DR: [id number] [facility] [address] [facility]. [place], [place] [address] [id number] E MR#: [id number] Acc #: [id number] NAME: CHELSI SWANSON : 1960 SEX: F STUDY DATE/TIME: 08/07/2016 UNIT: [facility] ROOM: STUDY DESCRIPTION: CR Chest Single View Portable Attending Physician: Nelson Barboza D.O. Referring Physician: No Ref Dr Unknown Ordering Physician: Nelson Barboza D.O. Primary Care Physician: No Primary Care Physician MEDICAL IMAGING REPORT This report is preliminary unless electronic signature is present EXAM Chest portable 08/07/2016 1111 hours HISTORY 56-year-old woman with history of left lung carcinoma complaining of congestion, sore throat, and severe cough for 3 days. COMPARISON 07/17/2016 FINDINGS Portable upright chest demonstrates normal heart size with stable mildly tortuous aorta. Hilar contours are normal. Lungs appear clear with the exception of linear atelectasis or scar at the left base. There is no effusion or pneumothorax. IMPRESSION Minimal linear scar or atelectasis of the left base. No acute cardiopulmonary findings. Dictated by... Jaclyn Herr M.D. THIS IS AN ELECTRONICALLY VERIFIED REPORT Jaclyn Herr M.D. at 08/07/2016 2:30 PM REGINALD/sharda TD: 08/07/2016 13:11 JOB #: [id number] MEDICAL IMAGING REPORT [facility] A Service [facility] RADIOLOGY TEXT RESULTS PATIENT: CHELSI SWANSON LOCATION: JW : 60 UNIT #: [id number] AGE: [address]: Nelson Barboza DO SEX: F ORDER DR: Page 1 of 1 COPY
[2016-08-07 11:05] LABS: POC - CKMB 5.4 ng/mL (0.0-7.9); POC - TROPONIN <0.05 ng/mL (<=0.05)
[2016-08-07 11:11] LABS: ARTERIAL BLD GAS O2 SATURATION 96.1 % (90.0-100.0); ARTERIAL BLOOD GAS CARBOXY HB 1.6 %sat (0.0-9.0); ARTERIAL BLOOD GAS MET HB 0.5 %sat (0.0-2.0); ARTERIAL BLOOD GAS PCO2 47.7 mmHg (35.0-45.0); ARTERIAL BLOOD GAS PO2 94.1 mmHg (80.0-100); ARTERIAL BLOOD GAS pH 7.448 (7.350-7.450)
[2016-08-07 11:12] LABS: ARTERIAL BLOOD GAS ALLEN TEST NORMAL; ARTERIAL BLOOD GAS ART SITE LEFT RADIAL; ARTERIAL BLOOD GAS DELIVERY NASAL CANNULA; ARTERIAL DRAW? YES
[2016-08-07 11:27] LABS: PARTIAL THROMBOPLASTIN TIME 28.4 SECONDS (23.5-31.3); PROTHROMBIN TIME (PATIENT) 10.9 SECONDS (9.6-11.5)
[2016-08-07 11:36] LABS: BASOPHIL% 0.8 % (0-2.5); EOSINOPHIL% 0.7 % (0.0-7.0); HEMATOCRIT 43.1 % (35.0-45.0); HEMOGLOBIN 14.2 gm/dL (12.0-16.0); LYMPHOCYTE# 0.7 X10e3 (1.0-3.5); LYMPHOCYTE% 22.8 % (17.0-45.0); MEAN CELL VOLUME 97.5 FL (83-96); MEAN CORPUSCULAR HEMOGLOBIN 32.1 PG (28-34); MEAN PLATELET VOLUME 8.4 FL (6.5-11.5); MONOCYTE# 0.3 X10e3 (0-1.0); MONOCYTE% 10.5 % (3.0-12.0); NEUTROPHIL# 2.1 X10e3 (1.5-7.1); NEUTROPHIL% 65.2 % (40-75); RED BLOOD COUNT 4.42 X10e (3.90-5.30); RED CELL DISTRIBUTION WIDTH 14.2 % (11.0-15.5); WHITE BLOOD COUNT 3.3 X10e3 (4.0-10.5)
[2016-08-07 11:58] LABS: DIFF IND YES; PLATELET COUNT 99 X10e3 (140-420)
[2016-08-07 12:00] LABS: ANISOCYTOSIS SL; PLATELET ESTIMATE DECREASED (NORMAL)
[2016-08-07 12:04] LABS: ALBUMIN SERUM 3.6 g/dL (3.5-5.0); BILIRUBIN, DIRECT 0.6 mg/dL (0.0-0.2); BILIRUBIN,INDIRECT 0.8 mg/dL (0.0-0.9); BILIRUBIN,TOTAL 1.4 mg/dL (0.2-2.0); BUN/CREATININE RATIO 11.66; CALCIUM SERUM 8.5 mg/dL (8.4-10.2); CREATININE SERUM 0.6 mg/dL (0.6-1.4); GLOM FILT RATE Estimated 101.9 mL/min (>60); PROTEIN TOTAL SERUM 7.7 g/dL (6.0-8.3)
[2016-08-07 12:09] LABS: POTASSIUM 2.9 mmol/L (3.5-5.1)
[2016-08-07 12:20] LABS: ACETAMINOPHEN <10 ug/mL; ALCOHOL BLOOD 5 mg/dL ([0,]); SALICYLATE <4.0 mg/dL
[2016-08-07 12:41] LABS: INFLUENZA A NEG (NEG); INFLUENZA B NEG (NEG)
[2016-08-07 12:54] LABS: POC - TROPONIN <0.05 ng/mL (<=0.05)
[~2016-08-07 12:56] MED LIST changes: +ALBUTEROL0.63 MG/3 INH; +EFFEXOR75 M1 PO; +EFFEXOR75 M3 PO; +IBUPROFEN800 MG PO; +LIPITOR20 MG PO; +METOPROLOL TART25 MG PO; +NEURONTIN600 MG PO; +OMNICEF300 MG PO; +SYMBICORT INH; +ZESTORETIC 10-1 EAC1 PO
[2016-08-07 13:20] LABS: AMPHETAMINE POS (NEG); BARBITURATES NEG (NEG); BENZODIAZEPINES NEG (NEG); COCAINE NEG (NEG); MARIJUANA POS (NEG); OPIATES NEG (NEG); TRICYCLIC ANTIDEPRESSANTS NEG (NEG); U METHADONE NEG (NEG)
[2016-08-08 04:11] LABS: BASOPHIL% 0.3 % (0-2.5); HEMOGLOBIN 13.4 gm/dL (12.0-16.0); LYMPHOCYTE# 0.6 X10e3 (1.0-3.5); MEAN CELL VOLUME 97.6 FL (83-96); MEAN CORPUSCULAR HGB CONC 32.8 g/dL (30-36); MONOCYTE# 0.2 X10e3 (0-1.0); MONOCYTE% 2.6 % (3.0-12.0); NEUTROPHIL# 6.2 X10e3 (1.5-7.1); NEUTROPHIL% 88.1 % (40-75); PLATELET COUNT 122 X10e3 (140-420); RED CELL DISTRIBUTION WIDTH 14.7 % (11.0-15.5)
[2016-08-08 04:14] LABS: DIFF IND NO; WHITE BLOOD COUNT 7.1 X10e3 (4.0-10.5)
[2016-08-08 04:40] LABS: ALBUMIN SERUM 3.3 g/dL (3.5-5.0); BILIRUBIN,TOTAL 0.7 mg/dL (0.2-2.0); BUN/CREATININE RATIO 15.71; CALCIUM SERUM 8.5 mg/dL (8.4-10.2); CREATININE SERUM 0.7 mg/dL (0.6-1.4); GLOM FILT RATE Estimated 96.9 mL/min (>60); POTASSIUM 3.7 mmol/L (3.5-5.1); PROTEIN TOTAL SERUM 7.2 g/dL (6.0-8.3)
[2016-08-09] MEDS ORDERED: TESSALON PERLE100 M1 PO (10:42)
[2016-08-09] MEDS ORDERED: VIBRAMYCIN100 M1 PO (10:43)
[2016-08-09] MEDS ORDERED: ALBUTEROL0.63 MG/3 INH (10:45)
[2016-08-09] MEDS ORDERED: DELTASONE20 MG PO (10:46)
== END 2016-08-09 11:44 | disposition home or self-care (01) ==
LOC: CED 12:56 → CEDOF 16:20 → C3A PCU 21:57
PROVIDERS: Emergency Medicine; Family Medicine
DX: J44.1 Chronic obstructive pulmonary disease with (acute) exacerbation (principal); E87.6 Hypokalemia; I10 Essential (primary) hypertension; E78.5 Hyperlipidemia, unspecified; F41.8 Other specified anxiety disorders; F17.210 Nicotine dependence, cigarettes, uncomplicated; B19.20 Unspecified viral hepatitis C without hepatic coma; D69.6 Thrombocytopenia, unspecified
CPT/HCPCS: 36415; 36600; 51701; 70360; 71010; 71275; 80048; 80053; 80076; 80307; 82553; 82803; 83605; 83735; 83880; 84132; 84484; 85025; 85379; 85610; 85730; 87804; 93005; 94640; 94664; 94760; 96374; 99285; G0378; G0480; J2930; Q9967

== ENCOUNTER 2016-08-20 17:37 | Observation (INO) | payer OTHER ==
--- NOTE | ~2016-08-20 | EKG ---
PATIENT: CHELSI SWANSON UNIT #: [id number] Ventricular Rate: 62 BPM Atrial Rate: 62 BPM P-R Interval: 128 ms QRS Duration: 88 ms Q-T Interval: 492 ms QTC Calculation(Bezet): 499 ms P [place]: 63 degrees Calculated R [place]: 66 degrees Calculated T [place]: 68 degrees Diagnosis Line: Normal sinus rhythm Diagnosis Line: Biatrial enlargement Diagnosis Line: Prolonged QT Diagnosis Line: Abnormal ECG Diagnosis Line: When compared with ECG of 07-AUG-2016 10:34, Diagnosis Line: Premature atrial complexes are no longer Present Diagnosis Line: Vent. rate has decreased BY 37 BPM Diagnosis Line: Confirmed by FANTA NICHOLE MD ([id number]) on 08/21/2016 Diagnosis Line: 8:07:17 PM INTERPRETING MD: DAYANARA GALO
--- NOTE | ~2016-08-20 | CO ---
Unit #: [id number] #: [id number] Patient: ABIGAIL SENA [id number] [address] [place], [place] [address] [id number] I MR#: [id number] NAME: ABIGAIL SENA ROOM: 306 Age: 56 Sex: F Admission Date: 08/21/2016 : 1960 Attending Physician: Scotty Delgado M.D. Primary Care Physician: Primary Care Physician No Consultation Date: 08/22/2016 CONSULTATION REPORT REASON FOR CONSULTATION Depression, suicide attempt, overdose. HISTORY OF PRESENT ILLNESS Ms. Abigail Sena is a 56-year-old white female, seen in room 306 bed 1 on 08/22/2016. The patient was admitted with overdose and suicidal ideation. The patient dressed casually in hospital attire, lying comfortably, has a sitter. The patient made good eye contact, seemed very sad, depressed, withdrawn, flat. The patient reported that she is still having suicidal ideation and would like to go to [facility] for treatment. The patient has a history of previous treatment at [facility] several years ago. The patient currently denied any psychotic symptom. The patient denied any use of drugs, but urine drug screen was positive for benzodiazepine, amphetamine, marijuana. The patient, according to the intake reports, admitted with an intentional polypharmacy overdose. The patient has mild to acute hypoxic failure at the time of admission. PAST PSYCHIATRIC HISTORY Remarkable for history of depression, substance abuse as mentioned above, history of previous treatment outpatient and inpatient as mentioned above. MEDICAL HISTORY Remarkable for history of hyperlipidemia, hepatitis C, essential hypertension, bronchitis, COPD. MEDICATIONS At home, the patient is on Symbicort, ibuprofen, Neurontin, Effexor 75 mg two tab b.i.d., Tessalon Perles p.r.n., Lopressor, Lipitor. FAMILY HISTORY AND SOCIAL HISTORY The patient reports that she has a good support system. The patient denied any history of abuse or history of substance abuse. The patient's urine drug screen was positive for multiple substances as mentioned above; marijuana, amphetamine, and benzodiazepine. REVIEW OF SYSTEMS Complete review of systems is unremarkable except as mentioned above. MENTAL STATUS EXAMINATION Vital signs; temperature 98.0, pulse 81, respirations 18, blood pressure 143/90, oxygen saturations 100%. General appearance, the patient dressed casually in hospital attire, lying comfortably in bed. Attention span and concentration, fair. Speech, regular rate. Oriented in time, place, and Unit #: [id number] #: [id number] Patient: ABIGAIL SENA. Mood and affect, sad, and depressed. Thought process, coherent. Thought content, the patient reported having suicidal ideation, recent suicide attempt. Denied any auditory or visual hallucination. Recent and remote memory, poor. Language, intact. Fund of knowledge, fair. Insight and judgment, fair to slightly impaired. DIAGNOSES Psychiatric: Major depressive disorder, recurrent, severe, F33.2; cannabis abuse, moderate, F12.20; amphetamine abuse, moderate, F15.20. Secondary diagnosis: Deferred. Medical diagnosis: Please refer to H and P. Stressors: Psychosocial stressors. ASSESSMENT AND PLAN 1. Supportive psychotherapy and psychoeducation provided to the patient. 2. Educated about benefits and side effects of medication and course and prognosis of illness. 3. Advised to transfer the patient to [facility] as soon as the patient is medically cleared for inpatient psychiatric stabilization. Please feel free to call if any questions telephone #[phone]. Dictated by... Micaela Burleson/juan manuel TD: 08/22/2016 23:24 JOB #: [id number] CONSULTATION REPORT Page 1 of 1 X Pepe Son MD X CONSULTATION REPORT
--- NOTE | ~2016-08-20 | HP ---
Unit #: [id number] #: [id number] Patient: CHELSI SWANSON [id number] [address] [place], [place] [address] [id number] I MR#: [id number] NAME: CHELSI SWANSON ROOM: 69406 Age: 56 Sex: F Admission Date: 08/21/2016 : 1960 Attending Physician: Rosemary Gonzalez M.D. Primary Care Physician: No Primary Care Physician HISTORY AND PHYSICAL CHIEF COMPLAINT Intentional polypharmacy overdose with somnolence and mild acute hypoxic respiratory failure. HISTORY This 56-year-old female with hypertension, hyperlipidemia, COPD, hepatitis C, anxiety and depression was transferred from [facility] after an overdose. The patient states that a male friend on 08/14/2016. Patient became increasingly depressed, and currently is homeless. Therefore, two days ago she took an overdose of multiple medications. Finally decided to go to [facility] after experiencing nausea and vomiting yesterday. [facility] sent the patient to this facility for further evaluation. Her O2 sats have dipped down to about 88%, she is mildly somnolent but does arouse and answer questions. In reviewing her medications her bottle of Neurontin 600 mg filled 08/10/2016 is empty; Effexor 75 mg 120 tablets filled 08/10/2016 is empty; Tessalon Perles 100 mg 30 tablets filled 08/10/2016 is empty; Lopressor 25 mg 30 tablets filled 08/10/2016 is empty; Lipitor 20 mg 30 tablets filled 08/10/2016 is also empty. Possibly the patient may have taken some Ibuprofen as well, I am unsure. In our ER she was bolused with IV fluids, given Narcan without improvement and 1 g of Rocephin for a possible UTI. Her urine tox screen is positive for amphetamines, benzos and THC, none of which are prescribed. Urinalysis is suspicious for a UTI. PAST MEDICAL HISTORY 1. Admission 07/15/2016 for polysubstance overdose. She overdosed on lisinopril, metoprolol, HCTZ. Was discharged home with outpatient psychiatry followup. 2. Admission 08/07/2016 for COPD exacerbation secondary to bronchitis. 3. Essential hypertension. 4. Hyperlipidemia. 5. COPD. 6. Hepatitis C with cirrhosis on imaging and thrombocytopenia. 7. Anxiety and depression. ALLERGIES Toradol and wasp venom. HOME MEDICATIONS Symbicort; albuterol; ibuprofen 800 mg p.r.n.; Neurontin 600 mg b.i.d.; Effexor 75 mg 2 tablets b.i.d.; Tessalon Perles p.r.n.; Lopressor 25 mg daily; Lipitor 20 mg daily. Unit #: [id number] #: [id number] Patient: CHELSI SWANSON FAMILY HISTORY Negative for depression. SOCIAL HISTORY The patient states that she is homeless. Smokes 1/2 pack per day of tobacco, and does not drink alcohol. Although her urine tox screen is positive for multiple substances, she denies current drug use but states that she did use drugs in the past. REVIEW OF SYSTEMS Difficult to obtain as patient is somnolent. PHYSICAL EXAMINATION GENERAL: Somnolent but arousable 56-year-old female, currently in no acute distress. VITAL SIGNS: Temperature 97.8, pulse 64, respirations 18, blood pressure 121/80, O2 saturation is 94% on 3 L of oxygen. HEENT: Eyes - PERRLA. Extraocular muscles are intact. Pharynx is benign. NECK: Supple without adenopathy or thyromegaly. CHEST: Clear. CARDIAC: Normal S1 and S2 without S3, S4 or murmur. ABDOMEN: Bowel sounds are present. No hepatosplenomegaly, tenderness, or masses. EXTREMITIES: Without clubbing, cyanosis or edema. Pedal pulses are present. NEUROLOGIC: Patient is somnolent but arousable. She slurs her speech. Her cranial nerves are intact. She has equal strength throughout. DIAGNOSTIC STUDIES ADMISSION LABS: Hematocrit is 44.4, white blood count is 11.8, platelet count is 124, which is stable. SMA 12 - potassium 3.3, albumin 3.2, AST 136, ALT 191, alk phos 109, improved from before. Lactic acid, acetaminophen, salicylate, and alcohol levels are negligible. Cardiac markers are negative. Urine tox screen positive for benzos, amphetamines, marijuana. Urinalysis positive leukocyte esterase and nitrates with 25 to 50 white cells, 4+ bacteria, moderate squamous cells seen. IMAGING STUDIES: Chest x-ray - no acute disease. CARDIOLOGY STUDIES: EKG sinus rhythm rate 62, normal appearing. ASSESSMENT 1. Polypharmacy overdose greater than 24 hours ago. This was an intentional overdose. 2. Positive urine tox screen for benzos, marijuana, amphetamines, none of which are prescribed. 3. Somnolence secondary to above. 4. Mild acute hypoxic respiratory failure. 5. COPD 6. Hepatitis C with elevated LFTs and stable thrombocytopenia. 7. Hypertension. 8. Urinary tract infection. 9. Hyperlipidemia. PLANS 1. IV fluids and monitor overnight. Unit #: [id number] #: [id number] Patient: CHELSI SWANSON 2. Symbicort, oxygen, DuoNeb. 3. SCDs for DVT prophylaxis. 4. 72 hour hold, [facility] to see in the morning. 5. Recheck labs in the morning. 6. Will check a CPK given Lipitor overdose. Dictated by Rosemary Gonzalez M.D. AML/ts TD: 08/21/2016 06:10 JOB #: [id number] HISTORY AND PHYSICAL Page 1 of 1 X Rosemary Gonzalez MD X HISTORY AND PHYSICAL
--- NOTE | ~2016-08-20 | CR72 ---
[facility] A Service of [facility] & [facility] RADIOLOGY TEXT RESULTS PATIENT: CHELSI SWANSON LOCATION: [facility] 306-01 : [birth year] UNIT #: [id number] AGE: [address]: Scotty Delgado MD SEX: F ORDER DR: [id number] [facility] [address]. [place], [place] [address] [id number] I MR#: [id number] Acc #: [id number] NAME: CHELSI SWANSON : 1960 SEX: F STUDY DATE/TIME: 08/20/2016 19:26 UNIT: [facility] ROOM: 50602 STUDY DESCRIPTION: CR Chest Single View Portable Attending Physician: Rosemary Gonzalez M.D. Ordering Physician: Nelson Barboza D.O. Primary Care Physician: No Primary Care Physician MEDICAL IMAGING REPORT This report is preliminary unless electronic signature is present EXAM Portable chest HISTORY Hypertension. Cardiac disease. Drug overdose today. FINDINGS The cardiac size and pulmonary vascularity are within normal limits. No infiltrates or effusions are identified. IMPRESSION Negative Dictated by... Bobby Goodman M.D. THIS IS AN ELECTRONICALLY VERIFIED REPORT Bobby Goodman M.D. at 08/21/2016 11:30 PM DFL/benjamin TD: 08/21/2016 01:33 JOB #: [id number] MEDICAL IMAGING REPORT Page 1 of 1 COPY
[~2016-08-20 17:37] MED LIST changes: +DELTASONE20 MG PO; +TESSALON PERLE100 M1 PO; +VIBRAMYCIN100 M1 PO
[2016-08-20 19:20] LABS: ARTERIAL BLD GAS O2 SATURATION 93.7 % (90.0-100.0); ARTERIAL BLOOD GAS ALLEN TEST NORMAL; ARTERIAL BLOOD GAS ART SITE LEFT RADIAL; ARTERIAL BLOOD GAS CARBOXY HB 3.2 %sat (0.0-9.0); ARTERIAL BLOOD GAS HCO3 32.3 mmol/L; ARTERIAL BLOOD GAS MET HB 0.7 %sat (0.0-2.0); ARTERIAL BLOOD GAS PCO2 49.8 mmHg (35.0-45.0); ARTERIAL BLOOD GAS pH 7.421 (7.350-7.450); ARTERIAL DRAW? YES
[2016-08-20 19:21] LABS: ARTERIAL BLOOD GAS DELIVERY NASAL CANNULA
[2016-08-20 19:26] LABS: BASOPHIL# 0.2 X10e3 (0-0.3); BASOPHIL% 1.5 % (0-2.5); EOSINOPHIL# 0.2 X10e3 (0-0.7); EOSINOPHIL% 1.9 % (0.0-7.0); HEMATOCRIT 44.4 % (35.0-45.0); HEMOGLOBIN 14.5 gm/dL (12.0-16.0); LYMPHOCYTE# 2.4 X10e3 (1.0-3.5); LYMPHOCYTE% 20.7 % (17.0-45.0); MEAN CELL VOLUME 98.5 FL (83-96); MEAN CORPUSCULAR HEMOGLOBIN 32.1 PG (28-34); MEAN CORPUSCULAR HGB CONC 32.6 g/dL (30-36); MEAN PLATELET VOLUME 8.5 FL (6.5-11.5); MONOCYTE# 0.8 X10e3 (0-1.0); MONOCYTE% 7.2 % (3.0-12.0); NEUTROPHIL# 8.1 X10e3 (1.5-7.1); NEUTROPHIL% 68.7 % (40-75); PLATELET COUNT 124 X10e3 (140-420); RED BLOOD COUNT 4.51 X10e (3.90-5.30); WHITE BLOOD COUNT 11.8 X10e3 (4.0-10.5)
[2016-08-20 19:28] LABS: DIFF IND NO
[2016-08-20 19:51] LABS: ALBUMIN SERUM 3.2 g/dL (3.5-5.0); ALKALINE PHOSPHATASE 109 U/L (32-92); ALT (SGPT) 191 U/L (10-40); AST (SGOT) 136 U/L (10-42); BILIRUBIN, DIRECT 0.4 mg/dL (0.0-0.2); BILIRUBIN,INDIRECT 0.7 mg/dL (0.0-0.9); BILIRUBIN,TOTAL 1.1 mg/dL (0.2-2.0); BLOOD UREA NITROGEN 20 mg/dL (9-23); CALCIUM SERUM 8.5 mg/dL (8.4-10.2); CARBON DIOXIDE 27 mmol/L (22-31); CHLORIDE 101 mmol/L (100-111); GLUCOSE FASTING 74 mg/dL (70-110); POTASSIUM 3.3 mmol/L (3.5-5.1); PROTEIN TOTAL SERUM 6.1 g/dL (6.0-8.3); SALICYLATE <4.0 mg/dL; SODIUM 136 mmol/L (135-145)
[2016-08-20 20:09] LABS: ACETAMINOPHEN <10 ug/mL; ALCOHOL BLOOD <5 mg/dL (0)
[2016-08-20 20:32] LABS: POC - CKMB <1.0 ng/mL (0.0-7.9); POC - TROPONIN <0.05 ng/mL (<=0.05)
[2016-08-20 20:34] LABS: URINE SOURCE CLEAN CATCH
[2016-08-20 20:38] LABS: URINE APPEARANCE CLOUDY; URINE BILIRUBIN NEG (NEG); URINE BLOOD TRACE (NEG); URINE COLOR DK YELLOW; URINE GLUCOSE NEG (NEG); URINE KETONE NEG (NEG); URINE LEUKOCYTE ESTERASE 3+ (NEG); URINE NITRATE POS (NEG); URINE PH 5.5 (5-8); URINE PROTEIN NEG (NEG)
[2016-08-20 20:40] LABS: CULTURE INDICATED? YES; URINE BACTERIA AUWI 4+ (NEGATIVE); URINE SQUAMOUS EPITHELIAL CELL MOD /[HPF]; UWBCS1 AUWI 25-50 (0-5)
[2016-08-20 21:08] LABS: POC - CKMB <1.0 ng/mL (0.0-7.9); POC - TROPONIN <0.05 ng/mL (<=0.05)
[2016-08-20 21:09] LABS: AMPHETAMINE POS (NEG); BARBITURATES NEG (NEG); BENZODIAZEPINES POS (NEG); COCAINE NEG (NEG); MARIJUANA POS (NEG); OPIATES NEG (NEG); TRICYCLIC ANTIDEPRESSANTS NEG (NEG); U METHADONE NEG (NEG)
[2016-08-21 09:15] LABS: BASOPHIL# 0.1 X10e3 (0-0.3); BASOPHIL% 1.4 % (0-2.5); EOSINOPHIL# 0.2 X10e3 (0-0.7); HEMATOCRIT 44.9 % (35.0-45.0); HEMOGLOBIN 14.5 gm/dL (12.0-16.0); LYMPHOCYTE# 1.9 X10e3 (1.0-3.5); MEAN CELL VOLUME 99.3 FL (83-96); MEAN CORPUSCULAR HGB CONC 32.2 g/dL (30-36); MEAN PLATELET VOLUME 9.4 FL (6.5-11.5); MONOCYTE# 0.6 X10e3 (0-1.0); MONOCYTE% 8.1 % (3.0-12.0); NEUTROPHIL# 4.7 X10e3 (1.5-7.1); NEUTROPHIL% 62.5 % (40-75); PLATELET COUNT 109 X10e3 (140-420); RED BLOOD COUNT 4.53 X10e (3.90-5.30); RED CELL DISTRIBUTION WIDTH 14.8 % (11.0-15.5); WHITE BLOOD COUNT 7.5 X10e3 (4.0-10.5)
[2016-08-21 09:27] LABS: DIFF IND NO
[2016-08-21 11:17] LABS: ALBUMIN SERUM 2.7 g/dL (3.5-5.0); BILIRUBIN,TOTAL 0.7 mg/dL (0.2-2.0); BUN/CREATININE RATIO 21.25; CALCIUM SERUM 8.2 mg/dL (8.4-10.2); CREATININE SERUM 0.8 mg/dL (0.6-1.4); GLOM FILT RATE Estimated 82.5 mL/min (>60); POTASSIUM 3.6 mmol/L (3.5-5.1); PROTEIN TOTAL SERUM 5.6 g/dL (6.0-8.3)
[2016-08-22] MEDS ORDERED: KEFLEX500 MG PO ×2 (18:12→18:13)
== END 2016-08-22 21:20 ==
LOC: CED 17:37 → CEDOF 08-21 00:52 → C3A PCU 08-21 00:52 → CEDOF 08-21 02:45 → C3A PCU 08-21 08:12
PROVIDERS: Emergency Medicine; Internal Medicine
DX: T50.992A Poisoning by other drugs, medicaments and biological substances, intentional self-harm, initial encounter (principal); J96.01 Acute respiratory failure with hypoxia; F12.10 Cannabis abuse, uncomplicated; F15.10 Other stimulant abuse, uncomplicated; F33.2 Major depressive disorder, recurrent severe without psychotic features; R40.0 Somnolence; J44.9 Chronic obstructive pulmonary disease, unspecified; B19.20 Unspecified viral hepatitis C without hepatic coma; D69.6 Thrombocytopenia, unspecified; I10 Essential (primary) hypertension; N39.0 Urinary tract infection, site not specified; F17.200 Nicotine dependence, unspecified, uncomplicated; R45.851 Suicidal ideations; Z59.0 Homelessness
CPT/HCPCS: 36415; 36600; 71010; 80048; 80053; 80076; 80307; 81003; 82550; 82553; 82803; 83036; 83605; 84484; 85025; 87086; 87186; 93005; 94640; 94760; 96361; 96374; 96375; 96376; 99285; G0378; G0480; J0696; J2310; J2405

== ENCOUNTER 2016-08-22 15:00 | Inpatient (IN) | payer OTHER ==
--- NOTE | ~2016-08-22 | CR127 ---
[facility] A Service of [facility] & [facility] RADIOLOGY TEXT RESULTS PATIENT: CHELSI SWANSON LOCATION: P1S P125-1 : 60 UNIT #: [id number] AGE: [address]: Pepe Son MD SEX: F ORDER DR: [id number] [facility] [address]. [place], [place] [address] [id number] I MR#: [id number] Acc #: [id number] NAME: CHELSI SWANSON : 1960 SEX: F STUDY DATE/TIME: 08/24/2016 14:33 UNIT: P1S ROOM: [facility] STUDY DESCRIPTION: CR Foot Complete Min 3 View Rt Attending Physician: Pepe Son M.D. Ordering Physician: Gwen Monterroso A.P.R.N. Primary Care Physician: No Primary Care Physician MEDICAL IMAGING REPORT This report is preliminary unless electronic signature is present EXAM Right foot 08/24/2016 INDICATION Right foot pain for a week after hitting foot on coffee table. 3 views of the right foot were obtained. FINDINGS The bones are normal. There is no fracture. IMPRESSION Normal right foot. Dictated by... Emmanuel Bennett M.D. THIS IS AN ELECTRONICALLY VERIFIED REPORT Emmanuel Bennett M.D. at 08/25/2016 9:44 AM Eduardo TD: 08/24/2016 18:18 JOB #: [id number] MEDICAL IMAGING REPORT Page 1 of 1 COPY
--- NOTE | ~2016-08-22 | PN ---
Unit #: [id number] #: [id number] Patient: ABIGAIL SENA [id number] [facility] [address] [place] [address] [id number] I MR#: [id number] NAME: ABIGAIL SENA ROOM: [facility]5 Age: 56 Sex: F Admission Date: 08/22/2016 : 1960 Attending Physician: Pepe Son M.D. Admitting Physician: Pepe Son M.D. Primary Care Physician: Primary Care Physician Gunjan JAQUEZ NOTES DATE OF SERVICE 08/24/2016 DISCUSSION Abigail Sena is a 56-year-old female seen on 08/24/2016. Patient interviewed, chart reviewed, I obtained information from nursing staff. Patient continues to be withdrawn, flat affect, sad, dysphoric mood, dressed in hospital attire. Patient still isolative, guarded, flat, reported suicidal ideation, severe depression. Patient tolerating medication fairly well, currently on Effexor/trazodone combination. COMPLETE REVIEW OF SYSTEMS Unremarkable. MENTAL STATUS EXAMINATION GENERAL APPEARANCE: Patient dressed casually in hospital attire. ATTENTION SPAN AND CONCENTRATION: Fair. Oriented in time, place and person. MOOD AND AFFECT: Sad, dysphoric. SPEECH: Monotone. THOUGHT PROCESS: [place]. Patient denied any thoughts of harming self or others RECENT AND REMOTE MEMORY: Poor. INSIGHT AND JUDGMENT: Poor, patient having passive SI. DIAGNOSIS Major depressive disorder, recurrent, severe ASSESSMENT/PLAN Advised to continue with current medication and therapeutic protocol. If needed, consider further adjustment in medication. Dictated by... Micaela Burleson/jose c Unit #: [id number] #: [id number] Patient: ABIGAIL SENA TD: 08/25/2016 20:24 JOB #: [id number] [facility] PROGRESS NOTES Page 1 of 1 X Pepe Son MD PROGRESS NOTE
--- NOTE | ~2016-08-22 | PA ---
Unit #: [id number] #: [id number] Patient: ABIGAIL SWANSON [id number] [facility] [address] [place] [address] [id number] I MR#: [id number] NAME: ABIGAIL SWANSON ROOM: P125 Age: 56 Sex: F Admission Date: 08/22/2016 : 1960 Date of Assessment: 08/23/2016 Attending Physician: Pepe Son M.D. Admitting Physician: Pepe Son M.D. Primary Care Physician: Primary Care Physician No PSYCHIATRIC ASSESSMENT INFORMANTS The patient reliability, fair; chart reliability, good. CHIEF COMPLAINT Depression, suicidal ideation. HISTORY OF PRESENT ILLNESS Abigail Swanson is a 56-year-old female, transferred from [facility], admitted with depression. The patient has a history of previous treatment through [facility] and [facility]. The patient is currently homeless, presented with overdose in an attempt to kill herself. The patient reported that she was having suicidal ideation, psychotic symptom, seeing things, hearing things, reported unable to contract for safety. Reported losing her partner of 20 years and her daughter running away. The patient reported multiple stressors, hopelessness, worthlessness, needing inpatient admission at this time for psychiatric stabilization. PAST PSYCHIATRIC HISTORY Remarkable for history of previous treatment through [facility] and [facility] in the past. FAMILY HISTORY AND SOCIAL HISTORY The patient currently has poor support system. Homeless. No history of any abuse. MEDICAL HISTORY Remarkable for COPD, hypertension, hepatitis C, high cholesterol. Musculoskeletal; muscle strength and tone, no atrophy or abnormal movement. Gait normal. MEDICATION HISTORY The patient is currently on Effexor, doxycycline, metoprolol, gabapentin, venlafaxine, and atorvastatin. ALLERGIES No known drug allergies. SUBSTANCE ABUSE HISTORY Tobacco, age of onset 13; alcohol, age of onset 15; marijuana, age of onset 17; crack cocaine, age of onset 20; opioid, age of onset 19; amphetamine, age of onset 28; benzodiazepine, age of onset 19. The patient currently reporting depressed mood, irritability, history of blackout, history of hepatitis, withdrawal symptom, IV drug use. Unit #: [id number] #: [id number] Patient: ABIGAIL SWANSON REVIEW OF SYSTEMS HEENT: Eyes, clear. Ears, nose, mouth, and throat; clear. CARDIOVASCULAR: Unremarkable. Respiratory: Unremarkable. GI: Unremarkable. : Unremarkable. SKIN: Unremarkable. LYMPH NODE: Unremarkable. NEUROLOGIC: Unremarkable. ENDOCRINE: Unremarkable. HEMATOLOGIC: Unremarkable. ALLERGIC/IMMUNOLOGIC: Unremarkable. MUSCULOSKELETAL: Muscle strength and tone, no atrophy or abnormal movement. Gait normal. MENTAL STATUS EXAMINATION CONSTITUTIONAL: Measurement of vital signs; temperature 97.7, pulse 82, respiratory rate 15, oxygen saturation 100%, blood pressure 110/73, height 5 feet 4 inches, weight 168 pounds. GENERAL APPEARANCE: The patient dressed casually. The patient did not show any facial deformity. MUSCULOSKELETAL: Please see above. PSYCHIATRIC EXAMINATION Description of speech; regular rate, normal volume, normal articulation, coherent. Description of thought process, goal directed. Description of association, intact. Description of abnormal psychotic thinking; the patient denied any hallucination or delusions, but mood lability, guarded and paranoid, suicidal ideation. Description of patient's judgment; concerning everyday activity, poor. Social situation, poor. Concerning psychiatric condition, poor. Complete mental status examination; oriented in time, place, and person. Recent and remote memory, fair. Attention span and concentration, fair. Language, able to name object and repeat phrases. Fund of knowledge, aware of current event and past event. Vocabulary, intact. Mood and affect, sad and dysphoric. Insight and judgment, fair to poor. ASSETS AND LIABILITIES Assets, the patient is articulate and able to take care of her ADL. Liability, history of substance abuse and depression. ADMITTING DIAGNOSES Psychiatric: Mood disorder, not otherwise specified, F32.9; anxiety disorder, not otherwise specified, F41.9. Secondary diagnosis: Deferred. Medical diagnoses: Chronic obstructive pulmonary disease, hypertension, hepatitis C, high cholesterol. Stressors: Psychosocial stressors. PSYCHIATRIC PLAN AND TREATMENT GOAL AND DISCHARGE PLAN 1. Advised to admit the patient on the inpatient unit. Provide safe, supportive, and structured environment. 2. Ordered labs; CBC, CMP, UA, and UDS. Unit #: [id number] #: [id number] Patient: ABIGAIL SWANSON 3. Precaution for self-harm and psychosis. 4. Advised to continue with home medication. If needed, consider further adjustment of medication. 5. The patient to attend all the programing on the inpatient unit. TREATMENT GOAL To attain euthymic mood, gain insight into her problem, and learn coping skills. DISCHARGE PLAN Plan to stabilize the patient and consider followup in outpatient program. ESTIMATED LENGTH OF STAY 3 to 5 days. Dictated by... Micaela Burleson/juan manuel TD: 08/24/2016 11:18 JOB #: [id number] PSYCHIATRIC ASSESSMENT Page 1 of 1 X Pepe Son MD X PSYCHIATRIC ASSESSMENT
--- NOTE | ~2016-08-22 | CO ---
Unit #: [id number] #: [id number] Patient: CHELSI SWANSON [id number] [facility] [address] [place] [address] [id number] I MR#: [id number] NAME: CHELSI SWANSON ROOM: [facility]5 Age: 56 Sex: F Admission Date: 08/22/2016 : 1960 Attending Physician: Pepe Son M.D. Primary Care Physician: Primary Care Physician No Requesting Physician: Pepe Son M.D. CONSULTATION REPORT Medical consultation ordered by Dr. Son for patient complaint of a broken right toe. SUBJECTIVE "I kicked the table about a week ago and my third toe has been bent and painful ever since and it was really bruised." OBJECTIVE VITAL SIGNS: within normal limits. Noted fight third toe that appears to be hammertoe, no bruising, no swelling. ASSESSMENT Possible broken toe. PLAN Two views, right foot, to be done tomorrow, Wednesday, 08/24. Dictated by... Manjula De Jesus/bogdan TD: 08/24/2016 13:10 JOB #: [id number] CONSULTATION REPORT Page 1 of 1 X Gwen Monterroso APR X CONSULTATION REPORT
--- NOTE | ~2016-08-22 | PN ---
Unit #: [id number] #: [id number] Patient: ABIGAIL SENA [id number] [facility] [address] [place] [address] [id number] I MR#: [id number] NAME: ABIGAIL SENA ROOM: [facility]5 Age: 56 Sex: F Admission Date: 08/22/2016 : 1960 Attending Physician: Pepe Son M.D. Admitting Physician: Pepe Son M.D. Primary Care Physician: Primary Care Physician Gunjan MCKAY PROGRESS NOTES DATE OF SERVICE 08/25/2016 DISCUSSION Ms. Abigail Sena is a 56-year-old female. Patient interviewed, chart reviewed, I obtained information from nursing staff. Patient compliant, cooperative, mood sad, dysphoric, flat affect, guarded. Patient did not show any aggressive behavior. Withdrawn, isolative, but maintained safe behavior on the unit. COMPLETE REVIEW OF SYSTEMS Unremarkable. MENTAL STATUS EXAMINATION GENERAL APPEARANCE: Patient dressed casually. ATTENTION SPAN AND CONCENTRATION: Fair. Oriented in place and person. MOOD AND AFFECT: Sad, dysphoric. SPEECH: Monotone. THOUGHT PROCESS: [place]. Patient denied any thoughts of harming self or others. RECENT AND REMOTE MEMORY: Poor. INSIGHT AND JUDGMENT: Poor. DIAGNOSIS Mood disorder, NOS ASSESSMENT/PLAN Advised to continue with current medication and therapeutic protocol. If needed, consider further adjustment on medication. Dictated by... Micaela Burleson/jose c TD: 08/26/2016 00:14 JOB #: [id number] Unit #: [id number] #: [id number] Patient: ABIGAIL SENA PEAALON PROGRESS NOTES Page 1 of 1 X Pepe Son MD PROGRESS NOTE
--- NOTE | ~2016-08-22 | DS ---
Unit #: [id number] #: [id number] Patient: CHELSI SWANSON [id number] [facility] [address] [place] [address] [id number] MR#: [id number] NAME: CHELSI SWANSON ROOM: [facility]5 Age: 56 Sex: F Admission Date: 08/22/2016 : 1960 Discharge Date: 08/26/2016 Attending Physician: Pepe Son M.D. Primary Care Physician: Primary Care Physician No DISCHARGE SUMMARY REASON FOR ADMISSION Depression. DIAGNOSTIC STUDIES LABORATORY RESULTS: Urine drug screen positive for benzodiazepine, amphetamine, and marijuana. HOSPITAL COURSE The patient was admitted to inpatient unit on 08/22/2016 and discharged on 08/26/2016. The patient was treated on the inpatient unit with group therapy, individual therapy, and medication management. The patient responded well with the above modalities of treatment. Subsequently, the patient was discharged with a plan to follow up in outpatient program. DISCHARGE MEDICATIONS Effexor 75 mg t.i.d. for depression, Neurontin 600 mg b.i.d. for anxiety and mood stabilization. DISCHARGE DIAGNOSES Psychiatric: 1. Mood disorder, not otherwise specified, F32.9. 2. Anxiety disorder, not otherwise specified, F41.9. 3. Sedative hypnotic use disorder, severe, F13.20. 4. Amphetamine use disorder, moderate, F15.20. 5. Cannabis abuse, moderate, F12.20. Secondary diagnosis: Deferred. Medical diagnosis: Please refer to H and P. Stressors: Psychosocial stressors. DISCHARGE INSTRUCTIONS The patient to follow up in outpatient clinic as per psychiatric social worker supervisor. CONDITION ON DISCHARGE The patient was pleasant and cooperative. Denied any psychotic symptom or any suicidal ideation. PROGNOSIS Guarded. DIET AND ACTIVITY As tolerated. Unit #: [id number] #: [id number] Patient: CHELSI SWANSON Dictated by... Micaela Burleson/juan manuel TD: 08/26/2016 17:15 JOB #: [id number] DISCHARGE SUMMARY Page 1 of 1 X Pepe Son MD X DISCHARGE SUMMARY
--- NOTE | ~2016-08-22 | HP ---
Unit #: [id number] #: [id number] Patient: CHELSI SWANSON [id number] [place] [address] [id number] I MR#: [id number] NAME: CHELSI SWANSON ROOM: [facility]5 Age: 56 Sex: F Admission Date: 08/22/2016 : 1960 Attending Physician: Pepe Son M.D. Admitting Physician: Pepe Son M.D. Primary Care Physician: Primary Care Physician No HISTORY AND PHYSICAL HISTORY OF PRESENT ILLNESS The patient is a 56-year-old female, who states that she is here due to depression and suicidal ideation. PAST MEDICAL HISTORY Significant for hypertension. PAST SURGICAL HISTORY None. ALLERGIES Toradol. SOCIAL HISTORY Positive for smoking. FAMILY HISTORY Noncontributory. REVIEW OF SYSTEMS CONSTITUTIONAL: No fever or chills. HEENT: Denies any sore throat, ear pain or runny nose. CARDIOVASCULAR: Denies chest pain, irregular heart rhythm or palpitations. CHEST: Denies shortness of breath or cough. No hemoptysis. GASTROINTESTINAL: Denies nausea, vomiting, diarrhea or chronic constipation. ENDOCRINE: Denies history of increased thirst or urination. No recent significant weight loss or gain. GENITOURINARY: Denies dysuria, frequency, or hematuria. SKIN: Denies any rashes. HEMATOLOGIC: Denies history of increased bleeding or bruising. MUSCULOSKELETAL: Denies any hot, swollen joints. No generalized muscle pain. NEUROLOGIC: Denies problems with vision or speech. No frequent, severe headaches. No numbness, tingling or weakness in any extremities. Denies loss of bladder or bowel control. CURRENT MEDICATIONS 1. Effexor 75 mg p.o. twice daily 2. Symbicort 160/4.5 two puffs twice daily 3. Metoprolol tartrate 25 mg p.o. daily 4. Lisinopril 10 mg p.o. daily 5. Neurontin 600 mg p.o. twice daily Unit #: [id number] #: [id number] Patient: CHELSI SWANSON 6. Hydrochlorothiazide 12.5 mg p.o. daily 7. Albuterol two puffs q.6h p.r.n. 8. Tessalon Perles 200 mg p.o. t.i.d. 9. Lipitor 20 mg p.o. daily 10. Keflex 500 mg one t.i.d. for two remaining days PHYSICAL EXAMINATION GENERAL: Alert, oriented, and no acute distress. VITAL SIGNS: Blood pressure 145/53, heart rate 104, respirations 18. HEIGHT: 5 feet 4 inches. WEIGHT: 168 pounds. SKIN: Warm and dry without rash or lesion. Multiple bruises to bilateral upper arms. HEENT: Normocephalic. TMs not viewed. Oral and nasal passages clear. Conjunctivae clear. PERRLA. EOMs intact. NECK: Supple without lymphadenopathy or thyromegaly. HEART: Regular rate and rhythm without murmur. LUNGS: Clear. ABDOMEN: Soft, nontender. : Not done. EXTREMITIES: No evidence of cyanosis, clubbing or edema. Moves all without focal deficit. NEUROLOGICAL: Grossly within normal limits. Cranial Nerves: II: Visual hassan are intact. III, IV AND : Extraocular movements are intact. Pupils are equal, round and reactive to light. V: Facial sensation is grossly normal. VII: Facial movements and expression are normal. VIII: Auditory acuity grossly intact. IX, X: Uvula is midline. Phonation is normal. XI: Patient shrugs shoulders and turns head normally. XII: Tongue protrudes in the midline. Sensory and Motor Function: Sensory and motor sensation is grossly normal. Motor: moves all extremities well. Coordination: Gait is normal. Deep Tendon Reflexes: Intact. IMPRESSION Psychiatric admission. RECOMMENDATIONS Psychiatric, per psychiatrist. MEDICAL No contraindications to participating in facility's activities. MEDICAL PROGNOSIS Good. Dictated by... Manjula De Jesus/bogdan TD: 08/24/2016 12:56 JOB #: [id number] Unit #: [id number] #: [id number] Patient: CHELSI SWANSON HISTORY AND PHYSICAL Page 1 of 1 X Gwen Monterroso APR X HISTORY AND PHYSICAL
[2016-08-22] MEDS ORDERED: KEFLEX500 MG PO ×2 (18:12→18:13)
== END 2016-08-26 10:00 | DRG 881 ==
LOC: P1S 20:24
DX: F32.9 Major depressive disorder, single episode, unspecified (principal); F13.20 Sedative, hypnotic or anxiolytic dependence, uncomplicated; I10 Essential (primary) hypertension; F15.20 Other stimulant dependence, uncomplicated; F41.9 Anxiety disorder, unspecified; J44.9 Chronic obstructive pulmonary disease, unspecified; B19.20 Unspecified viral hepatitis C without hepatic coma; E78.00 Pure hypercholesterolemia, unspecified; F12.20 Cannabis dependence, uncomplicated
CPT/HCPCS: 73630